=== PATIENT | male | born 1980 | race Caucasian/White ===

== ENCOUNTER 2016-11-19 20:47 | Emergency (ER) | payer MEDICAID ==
[2016-11-19 20:56] VITALS: RESP 18
[2016-11-19] MEDS ORDERED: LORazepam 2 MG/ML SYRINGE IV STA (21:15)
[2016-11-19] MEDS ORDERED: MECLIZINE 12.5 MG TAB PO STA (21:16)
--- NOTE | 2016-11-19 21:24 | ED ---
General Adult HPI - General Chief complaint: Dizziness Stated complaint: Vertigo Time Seen by Provider: 11/19/16 21:02 Source: patient, family, EMS, RN notes reviewed Mode of arrival: EMS Limitations: no limitations - History of Present Illness Initial comments: Chief complaint and history of present illness is a 36-year-old male to complaint of acute onset of dizziness. Nausea and vomiting and hit him early in the afternoon lasting 2 minutes then gone and again proximal and 90 minutes ago. The patient called the ambulance. This time is feeling slightly better. The dizziness increases when he looks hard to the left. No headache. No chest pain. No neuro deficits. - Related Data Home Medications Medication Instructions Recorded Confirmed Dextroamphetamine/Amphetamine 25 mg PO QAM 11/19/16 11/19/16 [Adderall Xr] Previous Rx's Medication Instructions Recorded Meclizine [Antivert] 25 mg PO TID #30 tab 11/19/16 Ondansetron Odt [Zofran ODT] 4 mg PO Q8HR PRN #5 tab 11/19/16 Allergies Allergy/AdvReac Type Severity Reaction Status Date / Time No Known Allergies Allergy Verified 03/16/16 11:21 Review of Systems ROS Statement: Those systems with pertinent positive or pertinent negative responses have been documented in the HPI. Review of systems. No headache he is dizzy when he turns his head to the left the right more than the left. No change in visual acuity. His reports she is talking normally. He states he has no weakness or difficulties with any extremities. Denies chest pain shows breath GI/ problems. All systems otherwise reviewed except for being dizzy with head movement. Past medical problems significant for migraines over 10 years ago and none since then. Denies any surgeries. Father had a stroke. Patient denies ALLERGIES nonsmoker drinks alcohol very rarely. Patient is not exposed to chemicals. He is a animal trainer. ROS Other: All systems not noted in ROS Statement are negative. Past Medical History Past Medical History: No Reported History History of Any Multi-Drug Resistant Organisms: None Reported Past Surgical History: No Surgical Hx Reported Past Psychological History: ADD/ADHD Smoking Status: Never smoker Past Alcohol Use History: None Reported Past Drug Use History: None Reported General Exam - General Exam Comments Initial Comments: General: The patient is awake and alert, acutely dizzy with nausea vomiting when he turns his head especially hard quickly to the left. Vital signs show temperature 96.5 pulse 56 respiratory rate 18 pulse ox on percent room air blood pressure 146/83 Eye: Pupils are equal, round and reactive to light, extra-ocular movements are intact ; there is normal conjunctiva bilaterally. No signs of icterus. Ears, nose, mouth and throat: There are moist mucous membranes and no oral lesions. Neck: The neck is supple, Cardiovascular: There is a regular rate and rhythm. Heart rate 56. Patient takes Adderall only Respiratory: Lungs are clear to auscultation, respirations are non-labored, breath sounds are equal. No wheezes, stridor, rales, or rhonchi. Gastrointestinal: Soft, non-distended, non-tender abdomen without masses or organomegaly noted. There is no rebound or guarding present. No CVA tenderness. Bowel sounds are unremarkable. Back: No back pain Musculoskeletal: No pain or problems with upper or lower extremities Neurological: The only focal problem is dizziness with head movement otherwise no neuro deficits. Skin: Denies any skin rashes Limitations: no limitations Course Vital Signs 11/19/16 20:53 Temperature 96.5 F L Pulse Rate 56 L Respiratory 18 Rate Blood Pressure 146/83 O2 Sat by Pulse 100 Oximetry Medical Decision Making - Medical Decision Making Patient states she is feeling better at this time. He received meclizine by mouth and IV Ativan. He is able to roll over without feeling too terribly dizzy. The plant this time for the patient to go home continue with medications including meclizine and Zofran. Stay hydrated change positions slowly. Follow-up with family physician return emergency room as needed Disposition Clinical Impression: Benign paroxysmal positional vertigo Disposition: HOME SELF-CARE Condition: Fair Instructions: Benign Paroxysmal Positional Vertigo (ED), Dizziness (ED) Additional Instructions: Stay hydrated, change positions slowly. Take Antivert 4 times daily for 10 days. Follow-up with family physician. If nauseated use Zofran as directed. Prescriptions: Meclizine [Antivert] 25 mg PO TID #30 tab Ondansetron Odt [Zofran ODT] 4 mg PO Q8HR PRN #5 tab PRN Reason: Nausea Time of Disposition: 23:27
[2016-11-19 23:53] VITALS: BP 151/89; PULSE 63; TEMP 98
== END 2016-11-19 23:51 | disposition home or self-care (01) ==
LOC: EC 20:47
DX: H81.10 Benign paroxysmal vertigo, unspecified ear (principal); R11.2 Nausea with vomiting, unspecified; F90.9 Attention-deficit hyperactivity disorder, unspecified type; Z79.899 Other long term (current) drug therapy
CPT/HCPCS: 93005; 99284; 96374; J2060

== ENCOUNTER → 2018-12-28 | Outpatient (CLI) | payer BC ==
--- NOTE | 2018-12-28 15:40 | NM ---
EXAMINATION TYPE: NM hepatobiliary w EF DATE OF EXAM: 12/28/2018 COMPARISON: NONE HISTORY: Acute cholecystitis per order. Abdominal pain with heartburn and reflux-like symptoms, known gallstones. TECHNIQUE: After the intravenous administration of 4.47 mCi Tc 99m Mebrofenin hepatobiliary scintigra phy is performed. Immediate images post injection. FINDINGS: There is satisfactory initial accumulation of tracer by the liver. The gallbladder is visualized wit hin 60 minutes. The small bowel activity is noted within 20 minutes. At one hour 8 ounces of oral e nsure plus is given to mimic CCK and gallbladder ejection fraction is calculated at 72 %, in the norm al range. Therefore there is no scintigraphic evidence of cystic or common bile duct obstruction to suggest acute cholecystitis or gallbladder dyskinesia. IMPRESSION: Exam is within normal limits.
== END | disposition home or self-care (01) ==
LOC: RADNMMAIN 12:47
PROVIDERS: ATTEND Psychiatry & Neurology Neurology
DX: K81.0 Acute cholecystitis (principal)
CPT/HCPCS: 78226; A9537

== ENCOUNTER 2019-03-20 16:39 | Inpatient (IN) | payer BC ==
[2019-03-20] MEDS ORDERED: SODIUM CHLORIDE 0.9% 1,000 ML IV STA (17:37)
[2019-03-20] MEDS ORDERED: HYDROmorphone 0.5 MG/0.5 ML SYRINGE IVP STA (17:45)
[2019-03-20] MEDS ORDERED: ONDANSETRON 4 MG/2 ML VIAL IVP STA (17:45)
--- NOTE | 2019-03-20 18:27 | ED ---
Abdominal Pain HPI - General Chief Complaint: Abdominal Pain Stated Complaint: GALLBLADDER PROBLEM Time Seen by Provider: 03/20/19 17:37 Source: patient, RN notes reviewed Mode of arrival: ambulatory Limitations: no limitations - History of Present Illness Initial Comments: This a 38-year-old male presents emergency Department chief complaint of right u pper quadrant abdominal pain. Patient states that he has known gallstones but states he has not had ultrasound in over 15 years. Patient states occasionally has pain associated with eating but states that he usually goes away with states the pain today has not subsided for several hours. He did have a CAT scan which was essentially normal. Patient denies any fevers or chills did not some nausea no vomiting denies diarrhea constipation no prior abdominal surgeries. - Related Data Home Medications Medication Instructions Recorded Confirmed Dextroamphetamine/Amphetamine 20 mg PO BID 03/20/19 03/20/19 [Adderall] Allergies Allergy/AdvReac Type Severity Reaction Status Date / Time No Known Allergies Allergy Verified 03/20/19 17:45 Review of Systems ROS Statement: Those systems with pertinent positive or pertinent negative responses have been documented in the HPI. ROS Other: All systems not noted in ROS Statement are negative. Past Medical History Past Medical History: No Reported History History of Any Multi-Drug Resistant Organisms: None Reported Past Surgical History: No Surgical Hx Reported Past Psychological History: ADD/ADHD Smoking Status: Never smoker Past Alcohol Use History: None Reported Past Drug Use History: None Reported General Exam Limitations: no limitations General appearance: alert, in no apparent distress Head exam: Present: atraumatic, normocephalic, normal inspection Neck exam: Present: normal inspection. Absent: tenderness, meningismus, lymphadenopathy Respiratory exam: Present: normal lung sounds bilaterally. Absent: respiratory distress, wheezes, rales, rhonchi, stridor Cardiovascular Exam: Present: normal rhythm, tachycardia, normal heart sounds. Absent: systolic murmur, diastolic murmur, rubs, gallop, clicks GI/Abdominal exam: Present: soft, tenderness (Moderate right upper quadrant), normal bowel sounds. Absent: distended, guarding, rebound, rigid Course Vital Signs 03/20/19 17:25 Temperature 97.9 F Pulse Rate 114 H Respiratory 20 Rate Blood Pressure 180/109 O2 Sat by Pulse 98 Oximetry Medical Decision Making - Medical Decision Making 38 show male presented for abdominal pain patient has multiple gallstones, elevated LFTs and not completely visualize common bile duct. Case discussed w remy Vitale patient will be admitted. - Lab Data Result diagrams: 03/20/19 18:20 03/20/19 18:20 Lab Results 03/20/19 03/20/19 03/20/19 Range/Units 18:20 18:20 18:20 WBC 11.9 H (3.8-10.6) k/uL RBC 5.44 (4.30-5.90) m/uL Hgb 15.5 (13.0-17.5) gm/dL Hct 45.6 (39.0-53.0) % MCV 83.9 (80.0-100.0) fL MCH 28.5 (25.0-35.0) pg MCHC 34.0 (31.0-37.0) g/dL RDW 14.4 (11.5-15.5) % Plt Count 196 (150-450) k/uL Neutrophils % 85 % Lymphocytes % 9 % Monocytes % 4 % Eosinophils % 1 % Basophils % 0 % Neutrophils # 10.1 H (1.3-7.7) k/uL Lymphocytes # 1.1 (1.0-4.8) k/uL Monocytes # 0.5 (0-1.0) k/uL Eosinophils # 0.1 (0-0.7) k/uL Basophils # 0.0 (0-0.2) k/uL Sodium 142 (137-145) mmol/L Potassium 3.8 (3.5-5.1) mmol/L Chloride 105 (98-107) mmol/L Carbon Dioxide 27 (22-30) mmol/L Anion Gap 10 mmol/L BUN 14 (9-20) mg/dL Creatinine 0.62 L (0.66-1.25) mg/dL Est GFR (CKD-EPI)AfAm >90 (>60 ml/min/1.73 sqM) Est GFR (CKD-EPI)NonAf >90 (>60 ml/min/1.73 sqM) Glucose 146 H (74-99) mg/dL Calcium 9.6 (8.4-10.2) mg/dL Total Bilirubin 1.3 (0.2-1.3) mg/dL AST 531 H (17-59) U/L ALT 359 H (21-72) U/L Alkaline Phosphatase 70 (38-126) U/L Total Protein 8.1 (6.3-8.2) g/dL Albumin 4.9 (3.5-5.0) g/dL Amylase 48 (30-110) U/L Lipase 144 (23-300) U/L Urine Color Yellow Urine Appearance Turbid (Clear) Urine pH 8.5 H (5.0-8.0) Ur Specific [place] 1.018 (1.001-1.035) Urine Protein 1+ H (Negative) Urine Glucose (UA) Trace H (Negative) Urine Ketones Negative (Negative) Urine Blood Negative (Negative) Urine Nitrite Negative (Negative) Urine Bilirubin Negative (Negative) Urine Urobilinogen 6.0 (<2.0) mg/dL Ur Leukocyte Esterase Negative (Negative) Urine WBC 5 (0-5) /hpf Amorphous Sediment Occasional H (None) /hpf Urine Mucus Rare H (None) /hpf Disposition Clinical Impression: Cholelithiasis, Elevated LFTs Disposition: ADMITTED IP TO THIS [facility] Condition: Stable Referrals: Rneé Her MD [Primary Care Provider] - 1-2 days
[2019-03-20 18:33] LABS: Amorphous Sediment,Urine Occasional /hpf; Appearance,Urine Turbid (Clear); Bilirubin,Urine Negative (Negative); Blood,Urine Negative (Negative); Color,Urine Yellow; Glucose,Urine (UA) Trace (Negative); Ketones,Urine Negative (Negative); Leukocyte Esterase,Urine Negative (Negative); Mucus,Urine Rare /hpf; Nitrite,Urine Negative (Negative); PH, Urine 8.5 (5.0-8.0); Protein,Urine 1+ (Negative); Specific Gravity,Urine 1.018 (1.001-1.035); WBC,Urine 5 /hpf (0-5)
[2019-03-20 18:41] LABS: Basophils % (A) 0 %; Eosinophils # (A) 0.1 k/uL (0-0.7); Eosinophils % (A) 1 %; HCT 45.6 % (39.0-53.0); HGB 15.5 gm/dL (13.0-17.5); Lymphocytes # (A) 1.1 k/uL (1.0-4.8); Lymphocytes % (A) 9 %; MCH 28.5 pg (25.0-35.0); MCV 83.9 fL (80.0-100.0); Mean Platelet Volume 7.1; Monocytes # (A) 0.5 k/uL (0-1.0); Monocytes % (A) 4 %; Neutrophils # (A) 10.1 k/uL (1.3-7.7); Neutrophils % (A) 85 %; Platelet Count 196 k/uL (150-450); RBC 5.44 m/uL (4.30-5.90); RDW 14.4 % (11.5-15.5); WBC 11.9 k/uL (3.8-10.6)
[2019-03-20 18:42] LABS: ALT 359 U/L (21-72); AST 531 U/L (17-59); African American GFR (CKD) >90 (>60 ml/min/1.73 sqM); Albumin 4.9 g/dL (3.5-5.0); Alkaline Phosphatase 70 U/L (38-126); Amylase 48 U/L (30-110); Anion Gap 10 mmol/L; Blood Urea Nitrogen 14 mg/dL (9-20); Calcium 9.6 mg/dL (8.4-10.2); Carbon Dioxide 27 mmol/L (22-30); Chloride 105 mmol/L (98-107); Glucose 146 mg/dL (74-99); Potassium 3.8 mmol/L (3.5-5.1); Sodium 142 mmol/L (137-145); Total Bilirubin 1.3 mg/dL (0.2-1.3); Total Protein 8.1 g/dL (6.3-8.2)
--- NOTE | 2019-03-20 19:07 | US ---
EXAMINATION TYPE: US gallbladder DATE OF EXAM: 03/20/2019 COMPARISON: NONE CLINICAL HISTORY: Pain. RUQ pain x 5.5 hours. Hx gallstones. EXAM MEASUREMENTS: Liver Length: 16.6 cm Gallbladder Wall: 0.26 cm CBD: not seen with certainty, posterior shadowing from gallbladder Right Kidney: 12.1 x 6.3 x 5.9 cm *Limited due to gas. Patient not NPO. Pancreas: obscured by overlying bowel gas. Liver: Difficult to penetrate Gallbladder: Echogenic foci with posterior shadowing seen throughout the gallbladder. Evidence for sonographic Whitkaer's sign: yes CBD: not seen with certainty Right Kidney: No hydronephrosis or masses seen IMPRESSION: Numerous gallstones. No dilated ducts. Common bile duct not seen. No focal liver defect.
[2019-03-20] MEDS ORDERED: PIPERACILLIN-TAZOBACTAM 3.375 GM in SODIUM CHLORIDE 0.9% 100 ML IVPB STA (20:05)
[2019-03-20] MEDS ORDERED: NALOXONE 0.4 MG/ML 1 ML VIAL IV PRN (20:06)
[2019-03-20] MEDS ORDERED: LABETALOL 5 MG/ML VIAL MDV IVP STA (21:29)
[2019-03-20] MEDS: SODIUM CHLORIDE 0.9% 1,000 ML IV SCH (21:42)
[2019-03-21] MEDS: PIPERACILLIN-TAZOBACTAM 3.375 GM in SODIUM CHLORIDE 0.9% 100 ML IVPB SCH ×3 (05:32→22:03)
[2019-03-21 07:03] LABS: Basophils % (A) 0 %; Eosinophils # (A) 0.1 k/uL (0-0.7); Eosinophils % (A) 1 %; HCT 43.2 % (39.0-53.0); HGB 14.2 gm/dL (13.0-17.5); Lymphocytes # (A) 1.3 k/uL (1.0-4.8); Lymphocytes % (A) 18 %; MCH 28.4 pg (25.0-35.0); MCHC 32.8 g/dL (31.0-37.0); MCV 86.5 fL (80.0-100.0); Mean Platelet Volume 7.2; Monocytes # (A) 0.3 k/uL (0-1.0); Monocytes % (A) 4 %; Neutrophils # (A) 5.4 k/uL (1.3-7.7); Neutrophils % (A) 76 %; Platelet Count 184 k/uL (150-450); RBC 4.99 m/uL (4.30-5.90); RDW 12.7 % (11.5-15.5); WBC 7.1 k/uL (3.8-10.6)
[2019-03-21 07:13] LABS: ALT 813 U/L (21-72); AST 691 U/L (17-59); African American GFR (CKD) >90 (>60 ml/min/1.73 sqM); Alkaline Phosphatase 72 U/L (38-126); Anion Gap 9 mmol/L; Blood Urea Nitrogen 10 mg/dL (9-20); Calcium 8.7 mg/dL (8.4-10.2); Carbon Dioxide 25 mmol/L (22-30); Chloride 107 mmol/L (98-107); Glucose 93 mg/dL (74-99); Sodium 141 mmol/L (137-145); Total Bilirubin 2.4 mg/dL (0.2-1.3); Total Protein 6.7 g/dL (6.3-8.2)
[2019-03-21] MEDS: SODIUM CHLORIDE 0.9% 1,000 ML IV SCH ×2 (09:07→20:50)
--- NOTE | 2019-03-21 09:56 | P.GSHP ---
History of Present Illness H&P Date: 03/21/19 CHIEF COMPLAINT: Common bile duct obstruction HISTORY OF PRESENT ILLNESS: The patient is a 38-year-old male who reports a 20 year history of having gallstones since he was age of [age] years old. He reports that he did not have insurance at that time. He's had intermittent attacks. His worst attack was 3 months ago during . He had a HIDA scan done which he says ejection fraction was over 75%. He presented yesterday to emergency room having after having severe epigastric discomfort and pain. LFTs are moderately elevated from 400-500. As a result, he was admitted for symptomatic gallstones, cholecystitis and common bile duct obstruction. This morning, his LFTs are worse including worsening total bilirubin levels. PAST MEDICAL HISTORY: Please see list PAST SURGICAL HISTORY: Please see list MEDICATIONS: Please see list ALLERGIES: Denies. SOCIAL HISTORY: Please see list FAMILY HISTORY: Pertinent for gallbladder disease REVIEW OF ORGAN SYSTEMS: CONSTITUTIONAL: No reports of fevers or chills. HEENT: Denies any troubles with the vision or hearing. ENDOCRINE: No reports of hypothyroidism. No diabetes. RESPIRATORY: No recent pneumonias. CARDIOVASCULAR: Denies chest pain or palpitations GI: No blood in stools or constipation. History of gallstones. MUSCULOSKELETAL: Has occasional joint pain including back pain. NEURO: No seizure disorders or headaches. No recent stroke. PSYCH: No depression or suicidal ideation. Has ADHD. HEMATOLOGIC: No personal or family history of DVTs or pulmonary emboli. PHYSICAL EXAM: VITAL SIGNS: Afebrile vital signs stable GENERAL: Well-developed pleasant male in no acute distress. HEENT: Mild scleral icterus. Extraocular movements grossly intact. Moist buccal mucosa. NECK: Supple without lymphadenopathy. CHEST: Unlabored respirations. Equal bilateral excursions. CARDIOVASCULAR: Regular rate regular rhythm rhythm. Distal 2+ pulses. ABDOMEN: Soft, nondistended. Nontender. MUSCULOSKELETAL: No clubbing, cyanosis, or edema. NEURO : No focal or lateralizing signs. Cranial nerves II-12 within normal limi ts. PSYCH: Alert and oriented to person, place and time. SKIN: Well perfused. Good skin turgor. LABS: White blood cell count improved however now with elevation of total bilirubin including worsening AST ALT and alkaline phosphatase over 400s. STUDIES: I personally reviewed his ultrasound of gallbladder demonstrating multiple gallstones and thickened gallbladder wall thickening. RADIOLOGY: Report reviewed demonstrating gallbladder wall thickening 26 mm. Difficult visualization of the common bile duct. MEDICAL RECORDS: Previous HIDA scan report reviewed demonstrating ejection fraction over 70% from November 2018 ASSESSMENT: 1. Choledocholithiasis due to symptomatically gallstones 2. Acute cholecystitis 3. Elevated liver enzymes 4. ADHD PLAN: 1. I personally spoke for GI where his LFTs are worsening consistent with common bile duct stones. Therapeutic ERCP discussed with patient pending GI consultation 2. Full inpatient hospitalization anticipated 3-5 days for complicated s ymptomatic gallstones 3. Will need cholecystectomy with benefits and risks described to patient and family at bedside 4. Further surgical intervention, patient presents with elevated risks for surgical intervention in conjunction with choledocholithiasis. Past Medical History Past Medical History: No Reported History History of Any Multi-Drug Resistant Organisms: None Reported Past Surgical History: No Surgical Hx Reported Past Anesthesia/Blood Transfusion Reactions: No Reported Reaction Past Psychological History: ADD/ADHD Smoking Status: Never smoker Past Alcohol Use History: None Reported Past Drug Use History: None Reported Medications and Allergies Home Medications Medication Instructions Recorded Confirmed Type Dextroamphetamine/Amphetamine 20 mg PO BID 03/20/19 03/20/19 History [Adderall] Allergies Allergy/AdvReac Type Severity Reaction Status Date / Time No Known Allergies Allergy Verified 03/20/19 17:45 Surgical - Exam Vital Signs Temp Pulse Resp BP Pulse Ox 97.9 F 114 H 20 180/109 98 03/20/19 17:25 03/20/19 17:25 03/20/19 17:25 03/20/19 17:25 03/20/19 17:25 Results - Labs 03/21/19 06:46 03/21/19 06:46 Abnormal Lab Results - Last 24 Hours (Table) 03/20/19 03/20/19 03/20/19 Range/Units 18:20 18:20 18:20 WBC 11.9 H (3.8-10.6) k/uL Neutrophils # 10.1 H (1.3-7.7) k/uL Creatinine 0.62 L (0.66-1.25) mg/dL Glucose 146 H (74-99) mg/dL Total Bilirubin (0.2-1.3) mg/dL AST 531 H (17-59) U/L ALT 359 H (21-72) U/L Urine pH 8.5 H (5.0-8.0) Urine Protein 1+ H (Negative) Urine Glucose (UA) Trace H (Negative) Amorphous Sediment Occasional H (None) /hpf Urine Mucus Rare H (None) /hpf 03/21/19 Range/Units 06:46 WBC (3.8-10.6) k/uL Neutrophils # (1.3-7.7) k/uL Creatinine (0.66-1.25) mg/dL Glucose (74-99) mg/dL Total Bilirubin 2.4 H (0.2-1.3) mg/dL AST 691 H (17-59) U/L ALT 813 H (21-72) U/L Urine pH (5.0-8.0) Urine Protein (Negative) Urine Glucose (UA) (Negative) Amorphous Sediment (None) /hpf Urine Mucus (None) /hpf Diabetes panel 03/20/19 03/21/19 Range/Units 18:20 06:46 Sodium 142 141 (137-145) mmol/L Potassium 3.8 4.0 (3.5-5.1) mmol/L Chloride 105 107 (98-107) mmol/L Carbon Dioxide 27 25 (22-30) mmol/L BUN 14 10 (9-20) mg/dL Creatinine 0.62 L 0.76 (0.66-1.25) mg/dL Glucose 146 H 93 (74-99) mg/dL Calcium 9.6 8.7 (8.4-10.2) mg/dL AST 531 H 691 H (17-59) U/L ALT 359 H 813 H (21-72) U/L Alkaline Phosphatase 70 72 (38-126) U/L Total Protein 8.1 6.7 (6.3-8.2) g/dL Albumin 4.9 4.0 (3.5-5.0) g/dL Calcium panel 03/20/19 03/21/19 Range/Units 18:20 06:46 Calcium 9.6 8.7 (8.4-10.2) mg/dL Albumin 4.9 4.0 (3.5-5.0) g/dL Pituitary panel 03/20/19 03/21/19 Range/Units 18:20 06:46 Sodium 142 141 (137-145) mmol/L Potassium 3.8 4.0 (3.5-5.1) mmol/L Chloride 105 107 (98-107) mmol/L Carbon Dioxide 27 25 (22-30) mmol/L BUN 14 10 (9-20) mg/dL Creatinine 0.62 L 0.76 (0.66-1.25) mg/dL Glucose 146 H 93 (74-99) mg/dL Calcium 9.6 8.7 (8.4-10.2) mg/dL Adrenal panel 03/20/19 03/21/19 Range/Units 18:20 06:46 Sodium 142 141 (137-145) mmol/L Potassium 3.8 4.0 (3.5-5.1) mmol/L Chloride 105 107 (98-107) mmol/L Carbon Dioxide 27 25 (22-30) mmol/L BUN 14 10 (9-20) mg/dL Creatinine 0.62 L 0.76 (0.66-1.25) mg/dL Glucose 146 H 93 (74-99) mg/dL Calcium 9.6 8.7 (8.4-10.2) mg/dL Total Bilirubin 1.3 2.4 H (0.2-1.3) mg/dL AST 531 H 691 H (17-59) U/L ALT 359 H 813 H (21-72) U/L Alkaline Phosphatase 70 72 (38-126) U/L Total Protein 8.1 6.7 (6.3-8.2) g/dL Albumin 4.9 4.0 (3.5-5.0) g/dL Assessment and Plan (1) Choledocholithiasis with acute cholecystitis Current Visit: Yes Status: Acute Code(s): K80.42 - CALCULUS OF BILE DUCT W ACUTE CHOLECYSTITIS W/O OBSTRUCTION SNOMED Code(s): 78683468 (2) Choledocholithiasis with acute cholecystitis with obstruction Current Visit: Yes Status: Acute Code(s): K80.43 - CALCULUS OF BILE DUCT W ACUTE CHOLECYSTITIS WITH OBSTRUCTION SNOMED Code(s): 25358255 (3) ADHD (attention deficit hyperactivity disorder) Current Visit: Yes Status: Acute Code(s): F90.9 - ATTENTION-DEFICIT HYPERACTIVITY DISORDER, UNSPECIFIED TYPE SNOMED Code(s): 385273810
[2019-03-21 10:00] LABS: Albumin 3.9 g/dL (3.5-5.0); Bilirubin, Conjugated 0.4 mg/dL (0.0-0.3); Bilirubin,Unconjugated 0.9 mg/dL (0.0-1.1); Total Bilirubin 2.3 mg/dL (0.2-1.3); Total Protein 6.6 g/dL (6.3-8.2)
[2019-03-21] MEDS ORDERED: INDOMETHACIN 50MG SUPPOSITORY RECTAL ONE (10:29)
--- NOTE | 2019-03-21 13:08 | P.CONS ---
History of Present Illness - Reason for Consult Consult date: 03/21/19 Choledocholithiasis Requesting physician: Jennifer Smith - Chief Complaint Abdominal pain - History of Present Illness Pleasant 38-year-old male with medical history significant for ADHD who presents for evaluation of abdominal pain. The patient reports a long-standing history of gallstones since age of [age] years old which caused him episodes of abdominal pain. He reports that these will occur intermittently and generally lasts less than 45 minutes. The patient was unwilling to undergo surgery prior to use dietary modifications to control symptoms. She presented to the hospital with complaints of severe epigastric discomfort. He describes the pain is lasting longer than normal, over now or in duration and was more severe in intensity. The patient had mild elevation in liver enzymes on presentation which subsequently trended higher with total bilirubin 1.3 increasing to 2.3, alkaline phosphatase 70 stable at 70, AST 531 increasing to 664 and ALTs 359 increasing to 806. Ultrasound of the abdomen was significant for numerous gallstones with no intrahepatic dilated ducts and CBD not visualized. Review of Systems REVIEW OF SYSTEMS: CONSTITUTIONAL: Denies any fevers, chills, weight change or fatigue. CARDIOVASCULAR: Denies any chest pain, palpitations high or low blood pressures RESPIRATORY: Denies any shortness of breath, hemoptysis or cough. GENITOURINARY: No dysuria or hematuria. MUSCULOSKELETAL: No weakness reported. SKIN: Denies any new rashes or lesions, jaundice or pallor. PSYCHIATRIC: Denies any depression or anxiety. NEUROLOGY: Denies headache, denies any new focal deficits. EARS/NOSE/THROAT: No recent hearing change, congestion, nasal discharge or sore throat. EYES: No pain in eyes, discharge or change in vision. GASTROINTESTINAL: As per HPI. Past Medical History Past Medical History: No Reported History History of Any Multi-Drug Resistant Organisms: None Reported Past Surgical History: No Surgical Hx Reported Past Anesthesia/Blood Transfusion Reactions: No Reported Reaction Past Psychological History: ADD/ADHD Smoking Status: Never smoker Past Alcohol Use History: None Reported Past Drug Use History: None Reported Additional History: Family history: Reviewed with the patient and noncontributory to current medical presentation. Medications and Allergies Home Medications Medication Instructions Recorded Confirmed Type Dextroamphetamine/Amphetamine 20 mg PO BID 03/20/19 03/20/19 History [Adderall] Allergies Allergy/AdvReac Type Severity Reaction Status Date / Time No Known Allergies Allergy Verified 03/20/19 17:45 Physical Exam Vitals: Vital Signs Temp Pulse Pulse Resp BP BP Pulse Ox 03/21/19 07:00 98.1 F 82 15 148/90 96 03/21/19 01:53 98.4 F 72 18 135/77 97 03/20/19 22:38 98.5 F 94 18 145/91 92 L 03/20/19 22:06 88 16 150/102 97 03/20/19 20:44 86 16 172/105 96 03/20/19 17:25 97.9 F 114 H 20 180/109 98 Intake and Output 03/20/19 03/21/19 03/21/19 22:59 06:59 14:59 Intake Total 1750 Balance 1750 Intake: Intake, IV Titration 1750 Amount Sodium Chloride 0.9% 1, 750 000 ml @ 75 mls/hr IV . [id number] DANIEL Rx#:[id number] Sodium Chloride 0.9% 1, 1000 000 ml @ 999 mls/hr IV . Q1H1M STA Rx#:[id number] Other: # Voids 1 2 Weight 99.79 kg On physical examination, patient appears comfortable in no apparent distress. HEAD: Normocephalic, atraumatic. EYES: No scleral icterus. No conjunctival injection. MOUTH: No lesions, tongue midline. NECK: Trachea midline, no gross abnormalities. CHEST: Clear to auscultation with no wheezing or rhonchi appreciated. HEART: Regular rate and rhythm. ABDOMEN: Soft, obese. Bowel sounds are positive. No organomegaly. No guarding or rigidity. EXTREMITIES: No pedal edema. SKIN: No rashes, no jaundice. NEUROLOGIC: Alert and oriented x3. No focal deficits. Results CBC & Chem 7: 03/21/19 06:46 03/21/19 06:46 Labs: Abnormal Lab Results - Last 24 Hours (Table) 03/20/19 03/20/19 03/20/19 Range/Units 18:20 18:20 18:20 WBC 11.9 H (3.8-10.6) k/uL Neutrophils # 10.1 H (1.3-7.7) k/uL Creatinine 0.62 L (0.66-1.25) mg/dL Glucose 146 H (74-99) mg/dL Total Bilirubin (0.2-1.3) mg/dL Conjugated Bilirubin (0.0-0.3) mg/dL Delta Bilirubin (0.0-0.2) mg/dL AST 531 H (17-59) U/L ALT 359 H (21-72) U/L Urine pH 8.5 H (5.0-8.0) Urine Protein 1+ H (Negative) Urine Glucose (UA) Trace H (Negative) Amorphous Sediment Occasional H (None) /hpf Urine Mucus Rare H (None) /hpf 03/21/19 03/21/19 Range/Units 06:46 06:46 WBC (3.8-10.6) k/uL Neutrophils # (1.3-7.7) k/uL Creatinine (0.66-1.25) mg/dL Glucose (74-99) mg/dL Total Bilirubin 2.4 H 2.3 H (0.2-1.3) mg/dL Conjugated Bilirubin 0.4 H (0.0-0.3) mg/dL Delta Bilirubin 1.0 H (0.0-0.2) mg/dL AST 691 H 664 H (17-59) U/L ALT 813 H 806 H (21-72) U/L Urine pH (5.0-8.0) Urine Protein (Negative) Urine Glucose (UA) (Negative) Amorphous Sediment (None) /hpf Urine Mucus (None) /hpf US - abdomen: report reviewed (Ultrasound of the abdomen with findings of gallstones with no intrahepatic biliary dilation and nonvisualization of the CBD) Assessment and Plan (1) Cholelithiasis Narrative/Plan: 38-year-old with a long-standing history of abdominal pain secondary to cholelithiasis who presented due to a severe episode of abdominal pain. The patient was found to have elevation in liver enzymes which subsequently trended higher today with total bilirubin 2.3, alkaline phosphatase 70, AST 800 and MALT 664. Suspicion is for choledocholithiasis, a gallstone which is passed, with other etiology less likely. Current Visit: Yes Status: Acute Code(s): K80.20 - CALCULUS OF GALLBLADDER W/O CHOLECYSTITIS W/O OBSTRUCTION SNOMED Code(s): 481534908 (2) Elevated LFTs Current Visit: Yes Status: Acute Code(s): R94.5 - ABNORMAL RESULTS OF LIVER FUNCTION STUDIES SNOMED Code(s): 950402695 Plan: Supportive care Nothing by mouth Continue antibiotic therapy Continue to monitor clinically Plan for ERCP today Indocin to be given preprocedure Surgical service following Thank you for allowing us to participate in the care of the patient we will continue to follow
[2019-03-21] MEDS ORDERED: IV FLUID CONTINUATION 1,000 ML IV ONE ×2 (16:40→16:41)
[2019-03-21] MEDS ORDERED: ONDANSETRON 4 MG/2 ML VIAL IVP ONE (16:51)
[2019-03-21] MEDS ORDERED: DEXAMETHASONE SOD PHOSPHATE 10 MG/ML 1 ML VIAL IV ONE (16:51)
[2019-03-21] MEDS ORDERED: PROPOFOL 10 MG/ML 20 ML VIAL IV ONE (17:07)
[2019-03-21] MEDS ORDERED: LIDOCAINE 1% INJ 10MG/ML (20 ML MDV) ONE (17:07)
[2019-03-21] MEDS ORDERED: SUCCINYLCHOLINE CHLORIDE 100 MG/5 ML SYR IV ONE (17:07)
[2019-03-21] MEDS ORDERED: MIDAZOLAM 2 MG/2 ML VIAL ONE (17:07)
[2019-03-21] MEDS ORDERED: fentaNYL (PF) 50 MCG/ML 2 ML AMP ONE (17:07)
[2019-03-21] MEDS ORDERED: IOPAMIDOL-300 50ML BTL MISCELLANE ONE (18:09)
--- NOTE | 2019-03-21 18:35 | P.PCN ---
Date of Procedure: 03/21/19 Description of Procedure: Brief history: 38-year-old male with medical history significant for ADHD who presents for evaluation of abdominal pain. The patient reports a long-standing history of gallstones since age of [age] years old which caused him episodes of abdominal pain. He reports that these will occur intermittently and generally lasts less than 45 minutes. The patient was unwilling to undergo surgery prior to use dietary modifications to control symptoms. She presented to the hospital with complaints of severe epigastric discomfort. He describes the pain is lasting longer than normal, over now or in duration and was more severe in intensity. The patient had mild elevation in liver enzymes on presentation which subsequently trended higher with total bilirubin 1.3 increasing to 2.3, alkaline phosphatase 70 stable at 70, AST 531 increasing to 664 and ALTs 359 increasing to 806. Ultrasound of the abdomen was significant for numerous gallstones with no intrahepatic dilated ducts and CBD not visualized. Procedure performed: ERCP with cholangiogram, sphincterotomy and balloon sweep Preoperative diagnoses: Elevated bilirubin, abdominal pain, cholelithiasis, elevated liver enzymes IV sedation per anesthesia Estimated blood loss: Minimal. Procedure: After informed consent was obtained from the patient and after the risks benefits and complications including bleeding perforation and pancreatitis explained in detail the patient was brought into the endoscopy unit. The patient was placed in prone position and IV conscious sedation was administered by anesthesia under continuous monitoring. The Olympus side-viewing duodenoscope was then inserted into the mouth and esophagus intubated without any difficulty. The scope was gradually advanced into the stomach and duodenum. The major papilla was identified without any difficulty, with no bile flow noted initially. Cannulation of the papilla was performed with a sphincterotome. Wire was then passed through the CBD into the common hepatic duct into the bifurcation. Cholangiogram was performed in the CBD appeared approximately 1 cm in size with no filling defects noted. A 1 cm sphincterotomy was then performed using the sphincterotome. The sphincterotome was then removed over the guidewire and exchanged for a balloon. Balloon was passed to the bifurcation and inflated to 8.5 and 11 mm with multiple passes through the duct performed with only bile seen. Pancreatic duct was injected and cannul ated. The patient tolerated the procedure well. Impression: 1. ERCP with cholangiogram, sphincterotomy and balloon sweep of the CBD. 2. Normal CBD with no filling defect noted. Recommendations: The findings of this examination were discussed with the patient as well as a family. Case discussed with the surgical service. Okay for full liquid diet and nothing by mouth after midnight. Continue monitor liver enzymes. Timing of cholecystectomy to be determined by surgical service.
[2019-03-21] MEDS: ONDANSETRON 4 MG/2 ML VIAL IVP PRN (19:56)
[2019-03-21] MEDS: HYDROmorphone 0.5 MG/0.5 ML SYRINGE IVP PRN (19:56)
[2019-03-22] MEDS: PIPERACILLIN-TAZOBACTAM 3.375 GM in SODIUM CHLORIDE 0.9% 100 ML IVPB SCH ×3 (05:46→21:26)
[2019-03-22] MEDS: HYDROmorphone 0.5 MG/0.5 ML SYRINGE IVP PRN ×3 (05:47→11:15)
--- NOTE | 2019-03-22 07:38 | FL ---
Fluoroscopy INDICATION: Pain FINDINGS: Fluoroscopy time: 52 seconds. Images obtained: 4. IMPRESSIONS: 1. Documentation of fluoroscopy.
[2019-03-22 09:07] LABS: ALT 669 U/L (21-72); AST 222 U/L (17-59); African American GFR (CKD) >90 (>60 ml/min/1.73 sqM); Albumin 4.4 g/dL (3.5-5.0); Alkaline Phosphatase 93 U/L (38-126); Anion Gap 11 mmol/L; Blood Urea Nitrogen 12 mg/dL (9-20); Calcium 9.3 mg/dL (8.4-10.2); Carbon Dioxide 25 mmol/L (22-30); Chloride 104 mmol/L (98-107); Glucose 109 mg/dL (74-99); Potassium 4.2 mmol/L (3.5-5.1); Sodium 140 mmol/L (137-145); Total Bilirubin 1.5 mg/dL (0.2-1.3); Total Protein 7.3 g/dL (6.3-8.2)
[2019-03-22 09:24] LABS: Basophils % (A) 0 %; Eosinophils # (A) 0.1 k/uL (0-0.7); Eosinophils % (A) 1 %; HCT 44.7 % (39.0-53.0); HGB 15.1 gm/dL (13.0-17.5); Lymphocytes # (A) 0.9 k/uL (1.0-4.8); Lymphocytes % (A) 10 %; MCH 29.1 pg (25.0-35.0); MCHC 33.7 g/dL (31.0-37.0); MCV 86.3 fL (80.0-100.0); Monocytes # (A) 0.4 k/uL (0-1.0); Monocytes % (A) 4 %; Neutrophils # (A) 7.1 k/uL (1.3-7.7); Neutrophils % (A) 84 %; Platelet Count 178 k/uL (150-450); RBC 5.18 m/uL (4.30-5.90); RDW 12.8 % (11.5-15.5); WBC 8.5 k/uL (3.8-10.6)
[2019-03-22] MEDS: SODIUM CHLORIDE 0.9% 1,000 ML IV SCH (11:15)
[2019-03-22] MEDS: ONDANSETRON 4 MG/2 ML VIAL IVP PRN (11:16)
[2019-03-22] MEDS ORDERED: HYDROmorphone 1 MG/ML 1 ML SYRINGE IVP STA (13:00)
[2019-03-22] MEDS ORDERED: SODIUM CHLORIDE 0.9% 1,000 ML IV ONE (14:44)
[2019-03-22] MEDS ORDERED: fentaNYL (PF) 50 MCG/ML 2 ML AMP IVP ONE ×2 (14:58→15:32)
--- NOTE | 2019-03-22 15:12 | P.PN ---
Subjective Progress Note Date: 03/22/19 Principal diagnosis: Elevated liver enzymes, cholelithiasis Patient is status post ERCP with sphincterotomy yesterday. Currently taken for laparoscopic cholecystectomy. LFTs trending down today, lipase elevated. At this time the gastroenterology service will stand by. Please call us back with any questions or concerns. Objective - Vital Signs Vital signs: Vital Signs Temp 97.5 F L 03/22/19 14:44 Pulse 66 03/22/19 14:44 Resp 16 03/22/19 14:44 BP 191/106 03/22/19 14:44 Pulse Ox 98 03/22/19 14:44 Intake & Output 03/21/19 03/22/19 03/22/19 18:59 06:59 18:59 Intake Total 1350 230 470 Balance 1350 230 470 Intake: IV 650 Intake, IV Titration 700 230 470 Amount Piperacillin-Tazobactam 3 100 100 .375 gm In Sodium Chloride 0.9% 100 ml @ 25 mls/hr IVPB Q8H DANIEL Rx#: [id number] Sodium Chloride 0.9% 1, 600 230 370 000 ml @ 75 mls/hr IV . [id number] DANIEL Rx#:[id number] Other: Voiding Method Toilet # Voids 3 1 2 - Labs CBC & Chem 7: 03/22/19 08:35 03/22/19 08:35 Labs: Abnormal Lab Results - Last 24 Hours (Table) 03/22/19 03/22/19 Range/Units 08:35 08:35 Lymphocytes # 0.9 L (1.0-4.8) k/uL Glucose 109 H (74-99) mg/dL Total Bilirubin 1.5 H (0.2-1.3) mg/dL AST 222 H (17-59) U/L ALT 669 H (21-72) U/L Lipase 2666 H (23-300) U/L Assessment and Plan (1) Cholelithiasis Current Visit: Yes Status: Acute Code(s): K80.20 - CALCULUS OF GALLBLADDER W/O CHOLECYSTITIS W/O OBSTRUCTION SNOMED Code(s): 683528077 (2) Elevated LFTs Current Visit: Yes Status: Acute Code(s): R94.5 - ABNORMAL RESULTS OF LIVER FUNCTION STUDIES SNOMED Code(s): 200565149
[2019-03-22] MEDS ORDERED: HEPARIN SODIUM,PORCINE 5,000 UNIT/ML 1 ML VIAL SQ ONE (17:26)
[2019-03-22] MEDS ORDERED: LIDOCAINE 1% INJ 10MG/ML (20 ML MDV) ONE (17:45)
[2019-03-22] MEDS ORDERED: ROPIVACAINE 5 MG/ML 30 ML VIAL ONE (17:45)
[2019-03-22] MEDS ORDERED: ROCURONIUM BROMIDE 10 MG/ML 10 ML VIAL IV ONE (17:45)
[2019-03-22] MEDS ORDERED: PROPOFOL 10 MG/ML 20 ML VIAL IV ONE (17:45)
[2019-03-22] MEDS ORDERED: MIDAZOLAM 2 MG/2 ML VIAL ONE (17:45)
[2019-03-22] MEDS ORDERED: GLYCOPYRROLATE 0.2 MG/ML 2 ML VIAL ONE (17:45)
[2019-03-22] MEDS ORDERED: NEOSTIGMINE 1 MG/ML 10 ML VIAL ONE (17:45)
[2019-03-22] MEDS ORDERED: INDOCYANINE GREEN 25 MG VIAL IV ONE (17:45)
[2019-03-22] MEDS ORDERED: SUCCINYLCHOLINE CHLORIDE 100 MG/5 ML SYR IV ONE (17:45)
[2019-03-22] MEDS ORDERED: fentaNYL (PF) 50 MCG/ML 2 ML AMP ONE (17:45)
--- NOTE | 2019-03-22 17:53 | P.ANPRN ---
Procedure Note - Anesthesia - Nerve Block Performed Bilateral Transversus Abdominis Single Time Out Performed: Yes Date of Procedure: 03/22/19 Procedure Start Time: 15:31 Procedure Stop Time: 15:36 Location of Patient Procedure: PreOp Indication: Acute Post-Operative Pain, Analgesia, Dx/Pain Location, Requested by Surgeon Sedation Type: Sedate with meaningful contact maintained Preparation: Sterile Prep Position: Supine Catheter: None Needle Types: Pajunk Needle Gauge: 21 Technique: Ultrasound (Picture was saved and stored on file. ) Injectate: Other (see comment) (0.25% bupivacaine with 1:200k epinephrine 30cc each side) Blood Aspirated: No Pain Paresthesia on Injection Noted: No Resistance on Injection: Normal Events: Uneventful and Well Tolerated
[2019-03-22] MEDS ORDERED: INDOCYANINE GREEN 25 MG VIAL IV STA (18:11)
[2019-03-22] MEDS ORDERED: HEPARIN SODIUM,PORCINE 5,000 UNIT/ML 1 ML VIAL SQ STA (18:11)
[2019-03-22] MEDS ORDERED: BUPIVACAIN-EPI 0.25%-1:200,000 30 ML VIAL SQ ONE (18:18)
[2019-03-22] MEDS ORDERED: LACTATED RINGERS 1,000 ML IV ONE ×3 (19:00→20:15)
[2019-03-22] MEDS: HYDROmorphone 1 MG/ML 1 ML SYRINGE IVP ONE ×4 (20:11→20:32)
--- NOTE | 2019-03-22 20:12 | P.OP ---
Date of Procedure: 03/22/19 Description of Procedure: Date of Procedure: 03/22/19 SURGEON: ROVERTO CHANG MD PREOPERATIVE DIAGNOSES: 1. Acute cholecystitis 2. Right upper quadrant abdominal pain 3. Symptomatic gallstones 4. ERCP induced pancreatitis 5. Epigastric abdominal pain 6. Attention deficit disorder/ADHD POSTOPERATIVE DIAGNOSES: 1. Acute cholecystitis 2. Right upper quadrant abdominal pain 3. Symptomatic gallstones 4. ERCP induced pancreatitis 5. Epigastric abdominal pain 6. Attention deficit disorder/ADHD 7. Peritoneal adhesions from greater omentum to gallbladder OPERATION: 1. Robotic-assisted da Jj Xi laparoscopic lysis of adhesions over 1 hr 2. Robotic-assisted da Jj Xi laparoscopic cholecystectomy, multiport with FIREFLY Anesthesia: GETA local Estimated Blood Loss (ml): 30 Pathology: none sent (Gallbladder) Condition: stable Disposition: floor COMPLICATIONS: None. Operative Findings: 1. Severe adhesive disease of the entire gallbladder to greater omentum from chronic cholecystitis 2. Acute cholecystitis identified. 3. Dome down technique performed for safe removal of gallbladder including firefly technology INDICATIONS: The patient is a 38-year-old male who presents with acute cholelcystitis including ERCP induced pancreatitis. Surgical intervention with a laparoscopic cholecystectomy was described at length including injury to the biliary tree, bleeding, infection, need for further surgery. Informed consent was obtained. Robotic assisted laparoscopic approach was described. Benefits and risks of the procedure including but not limited to bleeding, infection, injury to the biliary tree was described. Informed consent was obtained. DESCRIPTION OF PROCEDURE: Patient was brought to the operating room, placed in supine position. After general induction, the abdomen had been prepped and draped in standard sterile fashion. The robotic da Jj XI system was primed. After a timeout protocol was performed, the patient had been prepped and draped in standard sterile fashion. The patient was injected with indocyanine green. A 5 mm 0 degrees laparoscopic trocar entry was performed along the left upper quadrant. The abdomen insufflated to 15 mmHg pressure which was tolerated well. Diagnostic laparoscopy demonstrated no injury to bowel viscera or mesentery. The liver surface was unremarkable. Next, two 8 mm robotic ports were placed along the right upper abdomen. The camera 8-mm port was maintained along the epigastrium. Another 8 mm port was placed along the left upper abdominal wall after exchanging the 5 mm port. Please note that the ports were placed at least 10 to 15 cm away from the target anatomy of the gallbladder. The robot was docked along the left lateral abdomen. The patient was repositioned in reverse Trendelenburg position. Using a grasper for arm 3, a grasper for arm 4, including hook cautery for arm 1, the robotic system was docked and primed as described. Instruments were interchanged by the employment assistant including hook cautery, Bovie cautery and clip appliers. Additional instruments including vessel sealer and robotic suction. I had sat at the console. Diagnostic laparoscopy demonstrated that the gallbladder was completely encased in surrounding tissue. Extensive lysis of adhesions over 30 minutes was performed for complete dissection of gallbladder from surrounding tissue using cautery including vessel sealer. Decompression of the gallbladder did occur. Dome down technique was performed. The gallbladder fundus was retracted over the dome of the liver. Attention was brought to the infundibulum which was gently retracted in the inferior lateral approach. Using a grasper, the cystic duct including the cystic artery was carefully skeletonized. FIREFLY was used to identify the cystic artery and cystic structures. A critical view of safety was obtained. Large PLASTIC clips were used throughout the entire case. Using a clip tafe teacher 2 clips were placed proximally, and 1 clip was placed between the infundibulum and cystic duct and divided using cautery. Next, the cystic artery was similarly clipped and cauterized. Electro-Bovie cautery was used to remove the gallbladder from the hepatic fossa. Hemostasis was checked and found to be adequate. The robot was undocked. I re-scrubbed into the case. Using a 10 mm Endo Catch bag via the left upper quadrant incision, the specimen was removed from the abdominal cavity. All pneumoperitoneum instruments were evacuated from the abdominal cavity. The incisions were reapproximated using 4-0 Monocryl in an interrupted subcuticular fashion. Fascial defects were over 8 mm in size and closed using 0 Vicryl and Teodoro Montesinos. Please note along the trocar sites, local anesthetic was placed as a field block prior to insertion of all instruments. Liquid glue was applied to the skin. At the end of the procedure needle, sponge, and instrument count had been verified correct by the surgical instruments inspector. The patient was transferred to postanesthesia care unit in stable condition. Intraoperative films were shared with the patient's family who were very pleased with the level of care.
[2019-03-22] MEDS: KETOROLAC 30 MG/ML 1 ML VIAL IVP SCH (21:29)
[2019-03-23] MEDS: oxyCODONE-APAP 5-325MG 1 EACH TAB PO PRN ×4 (01:07→17:24)
[2019-03-23] MEDS: ONDANSETRON 4 MG/2 ML VIAL IVP PRN (01:29)
[2019-03-23] MEDS: SODIUM CHLORIDE 0.9% 1,000 ML IV SCH ×4 (01:58→23:51)
[2019-03-23] MEDS: HYDROmorphone 1 MG/ML 1 ML SYRINGE IVP PRN ×8 (02:00→23:49)
[2019-03-23] MEDS: KETOROLAC 30 MG/ML 1 ML VIAL IVP SCH ×4 (03:18→20:28)
[2019-03-23] MEDS: HEPARIN SODIUM,PORCINE 5,000 UNIT/ML 1 ML VIAL SQ SCH ×2 (05:06→18:26)
[2019-03-23] MEDS: PIPERACILLIN-TAZOBACTAM 3.375 GM in SODIUM CHLORIDE 0.9% 100 ML IVPB SCH ×3 (05:07→20:28)
[2019-03-23] MEDS: PANTOPRAZOLE 40 MG/10 ML VIAL IV SCH (07:47)
[2019-03-23] MEDS: METOCLOPRAMIDE 5 MG/ML 2 ML VIAL IVP PRN ×2 (07:53→18:25)
[2019-03-23 08:56] LABS: ALT 451 U/L (21-72); AST 125 U/L (17-59); African American GFR (CKD) >90 (>60 ml/min/1.73 sqM); Alkaline Phosphatase 81 U/L (38-126); Anion Gap 11 mmol/L; Blood Urea Nitrogen 13 mg/dL (9-20); Calcium 8.5 mg/dL (8.4-10.2); Carbon Dioxide 27 mmol/L (22-30); Chloride 98 mmol/L (98-107); Glucose 87 mg/dL (74-99); Potassium 3.9 mmol/L (3.5-5.1); Sodium 136 mmol/L (137-145); Total Bilirubin 1.3 mg/dL (0.2-1.3); Total Protein 6.8 g/dL (6.3-8.2)
--- NOTE | 2019-03-23 09:44 | P.PN ---
Subjective Progress Note Date: 03/23/19 Principal diagnosis: Pancreatitis Patient underwent cholecystectomy yesterday. Pain is improved today. Labs are improved as well. He is thirsty. Objective - Vital Signs Vital signs: Vital Signs Temp 98.1 F 03/23/19 07:00 Pulse 94 03/23/19 07:00 Resp 17 03/23/19 07:00 BP 171/95 03/23/19 07:00 Pulse Ox 94 L 03/23/19 07:00 Intake & Output 03/22/19 03/23/19 03/23/19 18:59 06:59 18:59 Intake Total 1470 1000 Output Total 530 Balance 1470 470 Intake: IV 1000 1000 Intake, IV Titration 470 Amount Piperacillin-Tazobactam 3 100 .375 gm In Sodium Chloride 0.9% 100 ml @ 25 mls/hr IVPB Q8H DANIEL Rx#: [id number] Sodium Chloride 0.9% 1, 370 000 ml @ 150 mls/hr IV . Q6H40M DANIEL Rx#:[id number] Output: Urine 500 Estimated Blood Loss 30 Other: # Voids 2 2 - Exam Abdomen: Soft, nondistended, mild tenderness at incision sites, incisions clean and dry - Labs CBC & Chem 7: 03/22/19 08:35 03/23/19 07:20 Labs: Abnormal Lab Results - Last 24 Hours (Table) 03/23/19 Range/Units 07:20 Sodium 136 L (137-145) mmol/L Creatinine 0.59 L (0.66-1.25) mg/dL AST 125 H (17-59) U/L ALT 451 H (21-72) U/L Assessment and Plan (1) Choledocholithiasis with acute cholecystitis Narrative/Plan: Patient doing better today. Begin clear liquids. Ambulate. Current Visit: Yes Status: Acute Code(s): K80.42 - CALCULUS OF BILE DUCT W ACUTE CHOLECYSTITIS W/O OBSTRUCTION SNOMED Code(s): 00447908
[2019-03-23] MEDS ORDERED: cloNIDine 0.1 MG/24HR PATCH TRANSDERM SCH (18:00)
--- NOTE | 2019-03-23 23:12 | P.CONS ---
History of Present Illness - Reason for Consult Consult date: 03/23/19 Elevated blood pressure - Chief Complaint Abdominal pain - History of Present Illness Patient is a 38-year-old male with a known history of gallstones for the past 20 years since a 18 and GERD came to ER with complaints of abdominal pain mainly right upper quadrant. Patient has been having intermittent abdominal pain. Patient says that occasionally pain was associated with eating and subsides by itself. On the day of admission, 03/20/2019 patient has been having worsening pain for several hours which made him come to ER. Denied any fever or chills. Patient does have nausea and vomiting. no abdominal pain. ultrasound of the liver showed multiple gallstones. Patient was found to have elevated liver enzymes and bilirubin level II.3. Patient was seen by gastroenterology and had ERCP done with cholangiogram, sphincterotomy and balloon sweep of the CBD. Following the ERCP patient developed epigastric pain radiating to the back with elevated lipase level, pancreatitis. Patient was taken to or for cholecystectomy yesterday. Currently patient is status post cholecystectomy. Patient is still complaining of abdominal pain mainly epigastric region. Blood pressure is uncontrolled despite pain medications. Medicine service was consulted. Operative Findings, cholecystectomy: 1. Severe adhesive disease of the entire gallbladder to greater omentum from chronic cholecystitis 2. Acute cholecystitis identified. 3. Dome down technique performed for safe removal of gallbladder including firefly technology ERCP Impression: 1. ERCP with cholangiogram, sphincterotomy and balloon sweep of the CBD. 2. Normal CBD with no filling defect noted. Review of Systems Constitutional: Patient denies any fever or chills . No generalized weakness or weight loss. Abdomen: Does have abdominal pain and nausea. No vomiting. No diarrhea.. Cardiovascular: Patient denies any chest pain or short of breath no palpitations. Respiratory: patient denied any cough is from production. No shortness of breath Neurologic: Patient denied any numbness or tingling headache. Musculoskeletal: Patient denies any complaints of joint swelling or deformity. Skin: Negative Psychiatric: Negative Endocrine: No heat or cold intolerance. No recent weight gain. Genitourinary: No dysuria or hematuria. All other 14 point ROS negative except the above Past Medical History Past Medical History: No Reported History History of Any Multi-Drug Resistant Organisms: None Reported Past Surgical History: No Surgical Hx Reported Past Anesthesia/Blood Transfusion Reactions: No Reported Reaction Past Psychological History: ADD/ADHD Smoking Status: Never smoker Past Alcohol Use History: None Reported Past Drug Use History: None Reported Medications and Allergies Home Medications Medication Instructions Recorded Confirmed Type Dextroamphetamine/Amphetamine 20 mg PO BID 03/20/19 03/20/19 History [Adderall] Hydrocodone/Acetaminophen [[place] 1 tab PO Q4HR PRN 3 Days #18 tab 03/22/19 Rx 5-325] Allergies Allergy/AdvReac Type Severity Reaction Status Date / Time No Known Allergies Allergy Verified 03/22/19 14:49 Physical Exam Vitals: Vital Signs Temp Pulse Pulse Resp BP Pulse Ox 03/23/19 15:47 94 154/96 03/23/19 15:00 98.8 F 110 H 17 164/113 93 L 03/23/19 09:47 98.1 F 86 14 156/74 03/23/19 07:00 98.1 F 94 17 171/95 94 L 03/23/19 02:07 98.5 F 86 18 154/89 93 L 03/22/19 23:05 98.0 F 87 15 154/89 98 03/22/19 23:04 88 150/91 03/22/19 22:49 81 154/103 96 03/22/19 22:34 77 160/82 96 03/22/19 22:19 76 156/91 96 03/22/19 22:04 71 152/85 96 03/22/19 21:49 68 157/80 95 03/22/19 21:34 64 157/92 95 03/22/19 21:19 62 149/84 94 L 03/22/19 21:04 98.4 F 63 15 161/94 93 L 03/22/19 20:45 59 L 16 149/83 92 L 03/22/19 20:30 61 16 154/93 92 L 03/22/19 20:15 63 16 154/93 94 L 03/22/19 20:00 97.5 F L 78 14 146/83 96 Intake and Output 03/23/19 03/23/19 03/23/19 06:59 14:59 22:59 Output Total 500 Balance -500 Output: Urine 500 Other: # Voids 2 1 PHYSICAL EXAMINATION: Patient is lying in the bed comfortably, mild distress, awake alert and oriented.. HEENT: Normocephalic. Neck is supple. Pupils reactive. Nostrils clear. Oral cavity is moist. Ears reveal no drainage. Neck reveals no JVD, carotid bruits, or thyromegaly. CHEST EXAMINATION: Trachea is central. Symmetrical expansion. Bibasilar diminished air entry. Lung niño clear to auscultation and percussion. CARDIAC: Normal S1, S2 with no gallops. No murmurs ABDOMEN: Soft. Epigastric abdominal tenderness. Bowel sounds normal. No organomegaly. No abdominal bruits. Extremities: reveal no edema. No clubbing or cyanosis Neurologically awake, alert, oriented x3 with well-coordinated movements. No focal deficits noted Skin: No rash or skin lesions. Psychiatric: Coperative. Nonsuicidal Musculoskeletal: No joint swelling or deformity. Normal range of motion. Results CBC & Chem 7: 03/22/19 08:35 03/23/19 07:20 Labs: Abnormal Lab Results - Last 24 Hours (Table) 03/23/19 Range/Units 07:20 Sodium 136 L (137-145) mmol/L Creatinine 0.59 L (0.66-1.25) mg/dL AST 125 H (17-59) U/L ALT 451 H (21-72) U/L Assessment and Plan Assessment: Elevated blood pressure likely due to pain and IV fluids. No history of hypertension. Choledocholithiasis with acute cholecystitis. Status post cholecystectomy. Elevated liver enzymes Cholelithiasis. Status post ERCP sphincterotomy Acute pancreatitis with elevated lipase level Cholelithiasis with chronic cholecystitis. GERD DVT prophylaxis Patient will be continued on IV hydration and pain management with Dilaudid. Patient will be placed on Catapres patch 0.1-0.2 mg since the patient is not rhona erating oral diet at this time. Continue to follow closely and adjust medications as needed.. Further recommendations based on the clinical course. Time with Patient: Greater than 30
[2019-03-24] MEDS: oxyCODONE-APAP 5-325MG 1 EACH TAB PO PRN ×3 (02:11→21:00)
[2019-03-24] MEDS: KETOROLAC 30 MG/ML 1 ML VIAL IVP SCH ×3 (02:11→14:57)
[2019-03-24] MEDS: HYDROmorphone 1 MG/ML 1 ML SYRINGE IVP PRN ×6 (03:16→22:06)
[2019-03-24] MEDS: SODIUM CHLORIDE 0.9% 1,000 ML IV SCH ×3 (03:17→18:32)
[2019-03-24] MEDS: PIPERACILLIN-TAZOBACTAM 3.375 GM in SODIUM CHLORIDE 0.9% 100 ML IVPB SCH ×3 (05:08→21:00)
[2019-03-24] MEDS: HEPARIN SODIUM,PORCINE 5,000 UNIT/ML 1 ML VIAL SQ SCH ×2 (05:08→18:50)
[2019-03-24 08:02] LABS: ALT 242 U/L (21-72); AST 79 U/L (17-59); African American GFR (CKD) >90 (>60 ml/min/1.73 sqM); Albumin 3.1 g/dL (3.5-5.0); Alkaline Phosphatase 60 U/L (38-126); Amylase 264 U/L (30-110); Anion Gap 8 mmol/L; Blood Urea Nitrogen 16 mg/dL (9-20); Calcium 7.9 mg/dL (8.4-10.2); Carbon Dioxide 28 mmol/L (22-30); Chloride 102 mmol/L (98-107); Glucose 83 mg/dL (74-99); Potassium 3.7 mmol/L (3.5-5.1); Sodium 138 mmol/L (137-145); Total Bilirubin 2.1 mg/dL (0.2-1.3); Total Protein 5.6 g/dL (6.3-8.2)
[2019-03-24 08:04] LABS: Basophils # (A) 0.1 k/uL (0-0.2); Basophils % (A) 1 %; Eosinophils # (A) 0.1 k/uL (0-0.7); Eosinophils % (A) 1 %; HCT 38.8 % (39.0-53.0); Lymphocytes % (A) 7 %; MCH 28.9 pg (25.0-35.0); MCHC 33.4 g/dL (31.0-37.0); MCV 86.5 fL (80.0-100.0); Mean Platelet Volume 7.5; Monocytes # (A) 0.7 k/uL (0-1.0); Monocytes % (A) 5 %; Neutrophils # (A) 13.2 k/uL (1.3-7.7); Neutrophils % (A) 87 %; Platelet Count 181 k/uL (150-450); RBC 4.48 m/uL (4.30-5.90); RDW 14.2 % (11.5-15.5); WBC 15.3 k/uL (3.8-10.6)
[2019-03-24] MEDS ORDERED: ADDERALL 20 MG PO SCH (09:00)
[2019-03-24] MEDS: ACETAMINOPHEN TAB 325 MG TAB PO PRN ×3 (09:12→22:42)
[2019-03-24] MEDS: PANTOPRAZOLE 40 MG/10 ML VIAL IV SCH (09:12)
[2019-03-24] MEDS: METOCLOPRAMIDE 5 MG/ML 2 ML VIAL IVP PRN ×2 (09:12→14:57)
--- NOTE | 2019-03-24 10:34 | P.PN ---
Subjective Progress Note Date: 03/24/19 Principal diagnosis: Pancreatitis Patient complaining of increased pain yesterday afternoon. Slightly better today. White blood cell count 15.3. Liver enzymes and lipase are improved. Feels bloated. Some nausea. Objective - Vital Signs Vital signs: Vital Signs Temp 98.5 F 03/24/19 07:00 Pulse 106 H 03/24/19 07:55 Resp 17 03/24/19 07:00 BP 171/101 03/24/19 07:00 Pulse Ox 96 03/24/19 07:00 Intake & Output 03/23/19 03/24/19 03/24/19 18:59 06:59 18:59 Intake Total 960 Output Total 300 Balance 960 -300 Intake: Oral 960 Output: Urine 300 Other: Voiding Method Toilet Toilet # Voids 1 3 3 - Exam Abdomen: Soft, mild distention, upper abdominal tenderness, no rebound or guarding, incisions clean and dry - Labs CBC & Chem 7: 03/24/19 07:12 03/24/19 07:12 Labs: Abnormal Lab Results - Last 24 Hours (Table) 03/24/19 03/24/19 Range/Units 07:12 07:12 WBC 15.3 H (3.8-10.6) k/uL Hct 38.8 L (39.0-53.0) % Neutrophils # 13.2 H (1.3-7.7) k/uL Creatinine 0.58 L (0.66-1.25) mg/dL Calcium 7.9 L (8.4-10.2) mg/dL Total Bilirubin 2.1 H (0.2-1.3) mg/dL AST 79 H (17-59) U/L ALT 242 H (21-72) U/L Total Protein 5.6 L (6.3-8.2) g/dL Albumin 3.1 L (3.5-5.0) g/dL Amylase 264 H (30-110) U/L Lipase 1503 H (23-300) U/L Assessment and Plan (1) Choledocholithiasis with acute cholecystitis Narrative/Plan: Will switch to nothing by mouth. Check abdominal x-rays. Recheck labs tomorrow. Current Visit: Yes Status: Acute Code(s): K80.42 - CALCULUS OF BILE DUCT W ACUTE CHOLECYSTITIS W/O OBSTRUCTION SNOMED Code(s): 96286759
[2019-03-24] MEDS: ONDANSETRON 4 MG/2 ML VIAL IVP PRN ×2 (12:54→21:02)
[2019-03-24] MEDS ORDERED: cloNIDine 0.2 MG/24HR PATCH TRANSDERM SCH (13:00)
[2019-03-24] MEDS: ADDERALL 20 MG PO SCH (14:58)
[2019-03-24] MEDS ORDERED: LABETALOL 200 MG TAB PO STA ×2 (22:56→23:23)
[2019-03-24] MEDS ORDERED: MORPHINE SULFATE 4 MG/ML SYRINGE IVP STA (22:57)
[2019-03-25] MEDS ORDERED: HYDROmorphone 1 MG/ML 1 ML SYRINGE IVP STA (00:09)
[2019-03-25] MEDS: SODIUM CHLORIDE 0.9% 1,000 ML IV SCH ×4 (00:17→21:26)
[2019-03-25] MEDS: HYDROmorphone 1 MG/ML 1 ML SYRINGE IVP PRN ×6 (01:26→13:07)
[2019-03-25] MEDS: METOCLOPRAMIDE 5 MG/ML 2 ML VIAL IVP PRN ×2 (01:31→14:59)
[2019-03-25] MEDS: oxyCODONE-APAP 5-325MG 1 EACH TAB PO PRN ×3 (03:15→12:26)
[2019-03-25] MEDS: PIPERACILLIN-TAZOBACTAM 3.375 GM in SODIUM CHLORIDE 0.9% 100 ML IVPB SCH ×3 (05:45→21:19)
[2019-03-25] MEDS: HEPARIN SODIUM,PORCINE 5,000 UNIT/ML 1 ML VIAL SQ SCH ×2 (05:45→17:31)
[2019-03-25] MEDS: PANTOPRAZOLE 40 MG/10 ML VIAL IV SCH (07:24)
[2019-03-25] MEDS: ADDERALL 20 MG PO SCH ×2 (07:24→21:29)
--- NOTE | 2019-03-25 08:51 | XR ---
EXAMINATION TYPE: XR abdomen 2V DATE OF EXAM: 03/25/2019 COMPARISON: NONE HISTORY: Abdominal pain. Evaluate ileus. Recent pancreatitis after cholecystectomy. TECHNIQUE: 2 views of the abdomen were obtained FINDINGS: No pneumoperitoneum is seen. No dilated large or small bowel. Paucity of bowel gas in the c entral abdomen. Levoscoliosis of the lumbar spine. Lung bases are well aerated. Osseous structures ar e grossly intact. IMPRESSION: Nonobstructive bowel gas pattern. No pneumoperitoneum.
[2019-03-25 09:14] LABS: ALT 173 U/L (21-72); AST 53 U/L (17-59); African American GFR (CKD) >90 (>60 ml/min/1.73 sqM); Albumin 3.3 g/dL (3.5-5.0); Alkaline Phosphatase 70 U/L (38-126); Anion Gap 8 mmol/L; Blood Urea Nitrogen 10 mg/dL (9-20); Calcium 8.2 mg/dL (8.4-10.2); Carbon Dioxide 26 mmol/L (22-30); Chloride 103 mmol/L (98-107); Glucose 90 mg/dL (74-99); Potassium 3.5 mmol/L (3.5-5.1); Sodium 137 mmol/L (137-145); Total Bilirubin 1.7 mg/dL (0.2-1.3); Total Protein 5.9 g/dL (6.3-8.2)
[2019-03-25 09:45] LABS: Basophils # (A) 0.1 k/uL (0-0.2); Basophils % (A) 1 %; Eosinophils # (A) 0.1 k/uL (0-0.7); Eosinophils % (A) 1 %; HCT 33.8 % (39.0-53.0); HGB 11.4 gm/dL (13.0-17.5); Lymphocytes # (A) 1.1 k/uL (1.0-4.8); Lymphocytes % (A) 8 %; MCH 28.8 pg (25.0-35.0); MCHC 33.7 g/dL (31.0-37.0); MCV 85.4 fL (80.0-100.0); Mean Platelet Volume 8.1; Monocytes # (A) 0.7 k/uL (0-1.0); Monocytes % (A) 5 %; Neutrophils # (A) 11.5 k/uL (1.3-7.7); Neutrophils % (A) 85 %; Platelet Count 215 k/uL (150-450); RBC 3.95 m/uL (4.30-5.90); RDW 13.4 % (11.5-15.5); WBC 13.5 k/uL (3.8-10.6)
[2019-03-25] MEDS: ONDANSETRON 4 MG/2 ML VIAL IVP PRN ×2 (10:50→21:19)
[2019-03-25] MEDS: IOPAMIDOL-300 CONTRAST 30 ML VIAL (ORAL USE) PO PRN ×2 (10:50→12:07)
--- NOTE | 2019-03-25 13:05 | CT ---
EXAMINATION TYPE: CT abdomen pelvis w con DATE OF EXAM: 03/25/2019 COMPARISON: None INDICATION: Recent cholecystectomy, possible pancreatitis DLP: 1688.4 mGycm, Automated exposure control for dose reduction was used. CONTRAST: 100 mL of Isovue 300. Study performed with Oral Contrast TECHNIQUE: Axial images were obtained from above the diaphragm to the pubic rami in the axial plane a t 5 mm thick sections. Reconstructed images are reviewed on the computer in the coronal plane. FINDINGS: Limited CT sections are obtained the lung bases. The lung bases are clear. CT ABDOMEN: Liver: Normal Spleen: Normal Pancreas: There is significant inflammatory changes extending anterior to the head of the pancreas. T his surrounds the inferior portion of the antrum of the stomach. Some wall thickening may be present. Some mild duodenal wall thickening may be present. Findings appear to be most likely related to acut e pancreatitis. Adrenal glands: The adrenal glands are normal. Gallbladder: Surgically absent Kidneys: No masses are evident. No hydronephrosis is present. No cysts are present. Delayed images were obtained through the kidneys, which remain unremarkable. Aorta: Normal Inferior vena cava: Normal. CT PELVIS: Moderate free fluid is within the pelvis Some thickening of the duodenum may be present. Thickening of the antrum may be present. This likely reactionary to the suspected appendicitis or possibly related to the recent cholecystectomy. Remainin g loops of bowel appear normal. Oral contrast extends to the distal small bowel loops. Colon is decom pressed. There are loops of bowel which are incompletely distended or lack oral contrast limiting the ir evaluation. Appendix: Normal as visualized. Urinary bladder: Normal. Genitourinary structures: Prostate is normal Osseous structures: No suspicious lytic or sclerotic lesions. IMPRESSIONS: 1. Extensive inflammatory changes adjacent to the head of the pancreas can be compatible with pancre atitis. No pseudocyst formation or abscess formation is evident at this time. Follow-up is recommende d.
[2019-03-25] MEDS ORDERED: NALOXONE 0.4 MG/ML 1 ML VIAL IV PRN (13:09)
[2019-03-25] MEDS: HYDROmorphone PCA 10 MG/50 ML BAG IV PRN ×2 (14:21→21:05)
--- NOTE | 2019-03-25 14:30 | P.PN ---
Subjective Progress Note Date: 03/25/19 Principal diagnosis: Pancreatitis Patient still complaining of abdominal pain. States it was bad again last night. Overall compared to 48 hours ago he says he does feel somewhat better. Some nausea but no vomiting. Feels bloated after taking in contrast for CAT scan that was ordered and completed this morning. His liver enzymes, pancreatic enzymes, and white blood cell count improved today. T-max 99. No tachycardia. Patient's CAT scan reviewed. Significant inflammatory changes at the head of the pancreas. Small amount of intra-abdominal pneumoperitoneum still present from recent cholecystectomy. No extravasation noted. Some fluid in the pelvis and also in the gallbladder fossa. Objective - Vital Signs Vital signs: Vital Signs Temp 99 F 03/25/19 07:00 Pulse 98 03/25/19 07:00 Resp 17 03/25/19 07:00 BP 166/94 03/25/19 07:00 Pulse Ox 99 03/25/19 07:00 Intake & Output 03/24/19 03/25/19 03/25/19 18:59 06:59 18:59 Intake Total 50 2000 Output Total 300 Balance -971 86 4494 Intake: Intake, IV Titration 800 Amount Sodium Chloride 0.9% 1, 800 000 ml @ 150 mls/hr IV . Q6H40M ON LICENSE OF [facility] Rx#:[id number] Oral 50 1200 Output: Urine 300 Other: Voiding Method Toilet Toilet # Voids 3 3 3 - Exam Abdomen: Soft, mild distention, upper abdominal tenderness, incisions clean and dry - Labs CBC & Chem 7: 03/25/19 07:51 03/25/19 07:51 Labs: Abnormal Lab Results - Last 24 Hours (Table) 03/25/19 03/25/19 Range/Units 07:51 07:51 WBC 13.5 H (3.8-10.6) k/uL RBC 3.95 L (4.30-5.90) m/uL Hgb 11.4 L (13.0-17.5) gm/dL Hct 33.8 L (39.0-53.0) % Neutrophils # 11.5 H (1.3-7.7) k/uL Creatinine 0.52 L (0.66-1.25) mg/dL Calcium 8.2 L (8.4-10.2) mg/dL Total Bilirubin 1.7 H (0.2-1.3) mg/dL ALT 173 H (21-72) U/L Total Protein 5.9 L (6.3-8.2) g/dL Albumin 3.3 L (3.5-5.0) g/dL Microbiology - Last 24 Hours (Table) 03/24/19 10:50 Blood Culture - Preliminary Blood No Growth after 24 hours Assessment and Plan (1) Choledocholithiasis with acute cholecystitis Narrative/Plan: Patient with significant pancreatitis after recent ERCP. CAT scan findings discussed with the patient in detail. Will modify analgesics by adding IV Tylenol and switching to Dilaudid RECOVERY ANALYST for now. We'll follow closely. Current Visit: Yes Status: Acute Code(s): K80.42 - CALCULUS OF BILE DUCT W ACUTE CHOLECYSTITIS W/O OBSTRUCTION SNOMED Code(s): 79705541
[2019-03-25] MEDS: ACETAMINOPHEN IV (For NPO) 1,000 MG in EMPTY BAG 1 BAG IVPB SCH (17:31)
[2019-03-25] MEDS ORDERED: MD COMMUNICATION TO PHARMACY 1 EACH MISC PO PRN (17:54)
[2019-03-25] MEDS ORDERED: NON-FORMULARY DRUG PO SCH (22:00)
--- NOTE | 2019-03-25 22:30 | P.PN ---
Subjective Progress Note Date: 03/24/19 Principal diagnosis: Acute pancreatitis Patient is a 38-year-old male with a known history of gallstones for the past 20 years since a 18 and GERD came to ER with complaints of abdominal pain mainly right upper quadrant. Patient has been having intermittent abdominal pain. Blanca nguyen says that occasionally pain was associated with eating and subsides by itself. On the day of admission, 03/20/2019 patient has been having worsening pain for several hours which made him come to ER. Denied any fever or chills. Patient does have nausea and vomiting. no abdominal pain. ultrasound of the liver showed multiple gallstones. Patient was found to have elevated liver enzymes and bilirubin level II.3. Patient was seen by gastroenterology and had ERCP done with cholangiogram, sphincterotomy and balloon sweep of the CBD. Following the ERCP patient developed epigastric pain radiating to the back with elevated lipase level, pancreatitis. Patient was taken to or for cholecystectomy yesterday. Currently patient is status post cholecystectomy. Patient is still complaining of abdominal pain mainly epigastric region. Blood pressure is uncontrolled despite pain medications. Medicine service was consulted. Operative Findings, cholecystectomy: 1. Severe adhesive disease of the entire gallbladder to greater omentum from chronic cholecystitis 2. Acute cholecystitis identified. 3. Dome down technique performed for safe removal of gallbladder including firefly technology ERCP Impression: 1. ERCP with cholangiogram, sphincterotomy and balloon sweep of the CBD. 2. Normal CBD with no filling defect noted. 03/24/2019 Patient says that his abdominal pain is better today. Still requiring IV Dilaudid. Lipase level is trending down. General surgery is on board. Denied any fever or chills. No chest pain or shortness of breath. Current medications reviewed. Objective - Vital Signs Vital signs: Vital Signs Temp 98.5 F 03/24/19 07:00 Pulse 106 H 03/24/19 07:55 Resp 17 03/24/19 07:00 BP 171/101 03/24/19 07:00 Pulse Ox 96 03/24/19 07:00 Intake & Output 03/23/19 03/24/19 03/24/19 18:59 06:59 18:59 Intake Total 960 Output Total 300 Balance 960 -300 Intake: Oral 960 Output: Urine 300 Other: Voiding Method Toilet Toilet # Voids 1 3 3 - Exam PHYSICAL EXAMINATION: Patient is lying in the bed comfortably, no acute distress, awake alert and oriented.. HEENT: Normocephalic. Neck is supple. Pupils reactive. Nostrils clear. Oral cavity is moist. Ears reveal no drainage. Neck reveals no JVD, carotid bruits, or thyromegaly. CHEST EXAMINATION: Trachea is central. Symmetrical expansion. Lung niño clear to auscultation and percussion. CARDIAC: Normal S1, S2 with no gallops. No murmurs ABDOMEN: Soft. Tenderness of the epigastric region. Surgical site intact. Bowel sounds normal. No organomegaly. No abdominal bruits. Extremities: reveal no edema. No clubbing or cyanosis Neurologically awake, alert, oriented x3 with well-coordinated movements. No focal deficits noted Skin: No rash or skin lesions. Psychiatric: Coperative. Nonsuicidal Musculoskeletal: No joint swelling or deformity. Normal range of motion. - Labs CBC & Chem 7: 03/25/19 07:51 03/25/19 07:51 Labs: Abnormal Lab Results - Last 24 Hours (Table) 03/24/19 03/24/19 Range/Units 07:12 07:12 WBC 15.3 H (3.8-10.6) k/uL Hct 38.8 L (39.0-53.0) % Neutrophils # 13.2 H (1.3-7.7) k/uL Creatinine 0.58 L (0.66-1.25) mg/dL Calcium 7.9 L (8.4-10.2) mg/dL Total Bilirubin 2.1 H (0.2-1.3) mg/dL AST 79 H (17-59) U/L ALT 242 H (21-72) U/L Total Protein 5.6 L (6.3-8.2) g/dL Albumin 3.1 L (3.5-5.0) g/dL Amylase 264 H (30-110) U/L Lipase 1503 H (23-300) U/L Assessment and Plan Assessment: Elevated blood pressure likely due to pain and IV fluids. No history of hypertension. Choledocholithiasis with acute cholecystitis. Status post cholecystectomy. Elevated liver enzymes Cholelithiasis. Status post ERCP sphincterotomy Acute pancreatitis with elevated lipase level Cholelithiasis with chronic cholecystitis. GERD DVT prophylaxis Patient will be continued on IV hydration and pain management with Dilaudid. Patient will be placed on Catapres patch 0.1-0.2 mg since the patient is not tolerating oral diet at this time. Continue to follow closely and adjust medications as needed.. Further recommendations based on the clinical course. Time with Patient: Greater than 30
--- NOTE | 2019-03-25 22:32 | P.PN ---
Subjective Progress Note Date: 03/25/19 Principal diagnosis: Acute pancreatitis Patient is a 38-year-old male with a known history of gallstones for the past 20 years since a 18 and GERD came to ER with complaints of abdominal pain mainly right upper quadrant. Patient has been having intermittent abdominal pain. Blanca nguyen says that occasionally pain was associated with eating and subsides by itself. On the day of admission, 03/20/2019 patient has been having worsening pain for several hours which made him come to ER. Denied any fever or chills. Patient does have nausea and vomiting. no abdominal pain. ultrasound of the liver showed multiple gallstones. Patient was found to have elevated liver enzymes and bilirubin level II.3. Patient was seen by gastroenterology and had ERCP done with cholangiogram, sphincterotomy and balloon sweep of the CBD. Following the ERCP patient developed epigastric pain radiating to the back with elevated lipase level, pancreatitis. Patient was taken to or for cholecystectomy yesterday. Currently patient is status post cholecystectomy. Patient is still complaining of abdominal pain mainly epigastric region. Blood pressure is uncontrolled despite pain medications. Medicine service was consulted. Operative Findings, cholecystectomy: 1. Severe adhesive disease of the entire gallbladder to greater omentum from chronic cholecystitis 2. Acute cholecystitis identified. 3. Dome down technique performed for safe removal of gallbladder including firefly technology ERCP Impression: 1. ERCP with cholangiogram, sphincterotomy and balloon sweep of the CBD. 2. Normal CBD with no filling defect noted. 03/24/2019 Patient says that his abdominal pain is better today. Still requiring IV Dilaudid. Lipase level is trending down. General surgery is on board. Denied any fever or chills. No chest pain or shortness of breath. 03/25/2019 Patient says that his abdominal pain is much worse and last night and this morning. Patient has been afebrile. Lipase level improved 299 today. Bilirubin level and evidence of improving. CT of the abdominal was ordered to rule out any necrotizing pancreatitis. patient is being continued on Dilaudid IV every 3 hourly when necessary for pain. No chest pain or shortness of breath. Able to ambulate in the room. Current medications reviewed. Objective - Vital Signs Vital signs: Vital Signs Temp 98.3 F 03/25/19 21:36 Pulse 95 03/25/19 21:36 Resp 18 03/25/19 21:36 BP 172/98 03/25/19 21:36 Pulse Ox 97 03/25/19 21:36 Intake & Output 03/25/19 03/25/19 03/26/19 06:59 18:59 06:59 Intake Total 50 1999 Balance 50 1999 Intake: Intake, IV Titration 800 Amount Sodium Chloride 0.9% 1, 800 000 ml @ 150 mls/hr IV . Q6H40M [facility] Rx#:[id number] Oral 50 1200 Other: Voiding Method Toilet # Voids 3 3 2 - Exam PHYSICAL EXAMINATION: Patient is lying in the bed comfortably, no acute distress, awake alert and oriented.. HEENT: Normocephalic. Neck is supple. Pupils reactive. Nostrils clear. Oral cavity is moist. Ears reveal no drainage. Neck reveals no JVD, carotid bruits, or thyromegaly. CHEST EXAMINATION: Trachea is central. Symmetrical expansion. Lung niño clear to auscultation and percussion. CARDIAC: Normal S1, S2 with no gallops. No murmurs ABDOMEN: Soft. Tenderness of the epigastric region. Surgical site intact. Bowel sounds normal. No organomegaly. No abdominal bruits. Extremities: reveal no edema. No clubbing or cyanosis Neurologically awake, alert, oriented x3 with well-coordinated movements. No fo clary deficits noted Skin: No rash or skin lesions. Psychiatric: Coperative. Nonsuicidal Musculoskeletal: No joint swelling or deformity. Normal range of motion. - Labs CBC & Chem 7: 03/25/19 07:51 03/25/19 07:51 Labs: Abnormal Lab Results - Last 24 Hours (Table) 03/25/19 03/25/19 Range/Units 07:51 07:51 WBC 13.5 H (3.8-10.6) k/uL RBC 3.95 L (4.30-5.90) m/uL Hgb 11.4 L (13.0-17.5) gm/dL Hct 33.8 L (39.0-53.0) % Neutrophils # 11.5 H (1.3-7.7) k/uL Creatinine 0.52 L (0.66-1.25) mg/dL Calcium 8.2 L (8.4-10.2) mg/dL Total Bilirubin 1.7 H (0.2-1.3) mg/dL ALT 173 H (21-72) U/L Total Protein 5.9 L (6.3-8.2) g/dL Albumin 3.3 L (3.5-5.0) g/dL Microbiology - Last 24 Hours (Table) 03/24/19 10:50 Blood Culture - Preliminary Blood No Growth after 24 hours Assessment and Plan Assessment: Elevated blood pressure likely due to pain and IV fluids. No history of hypertension. Choledocholithiasis with acute cholecystitis. Status post cholecystectomy. Elevated liver enzymes Cholelithiasis. Status post ERCP sphincterotomy Acute pancreatitis with elevated lipase level Cholelithiasis with chronic cholecystitis. GERD DVT prophylaxis Patient will be continued on IV hydration and pain management with Dilaudid. Patient will be placed on Catapres patch 0.1-0.2 mg since the patient is not tolerating oral diet at this time. Continue to follow closely and adjust medications as needed.. Further recommendations based on the clinical course. Time with Patient: Greater than 30
[2019-03-26] MEDS: ACETAMINOPHEN IV (For NPO) 1,000 MG in EMPTY BAG 1 BAG IVPB SCH ×3 (00:03→12:47)
[2019-03-26] MEDS: METOCLOPRAMIDE 5 MG/ML 2 ML VIAL IVP PRN ×2 (01:36→12:23)
[2019-03-26] MEDS ORDERED: cloNIDine 0.2 MG/24HR PATCH TRANSDERM SCH (01:45)
[2019-03-26] MEDS: oxyCODONE-APAP 5-325MG 1 EACH TAB PO PRN (04:00)
[2019-03-26] MEDS: HYDROmorphone PCA 10 MG/50 ML BAG IV PRN ×3 (04:40→17:01)
[2019-03-26] MEDS: SODIUM CHLORIDE 0.9% 1,000 ML IV SCH ×5 (04:41→23:45)
[2019-03-26] MEDS: HEPARIN SODIUM,PORCINE 5,000 UNIT/ML 1 ML VIAL SQ SCH ×2 (05:28→18:35)
[2019-03-26] MEDS: PIPERACILLIN-TAZOBACTAM 3.375 GM in SODIUM CHLORIDE 0.9% 100 ML IVPB SCH ×3 (05:28→22:27)
[2019-03-26] MEDS: ADDERALL 20 MG PO SCH ×3 (05:55→19:13)
[2019-03-26 08:21] LABS: ALT 132 U/L (21-72); AST 38 U/L (17-59); African American GFR (CKD) >90 (>60 ml/min/1.73 sqM); Albumin 3.4 g/dL (3.5-5.0); Alkaline Phosphatase 83 U/L (38-126); Anion Gap 10 mmol/L; Blood Urea Nitrogen 9 mg/dL (9-20); Calcium 8.2 mg/dL (8.4-10.2); Carbon Dioxide 26 mmol/L (22-30); Chloride 99 mmol/L (98-107); Glucose 76 mg/dL (74-99); Potassium 3.2 mmol/L (3.5-5.1); Sodium 135 mmol/L (137-145); Total Bilirubin 1.3 mg/dL (0.2-1.3); Total Protein 6.1 g/dL (6.3-8.2)
[2019-03-26 08:29] LABS: Basophils % (A) 0 %; Eosinophils # (A) 0.2 k/uL (0-0.7); Eosinophils % (A) 1 %; HCT 31.6 % (39.0-53.0); HGB 10.6 gm/dL (13.0-17.5); Lymphocytes # (A) 0.8 k/uL (1.0-4.8); Lymphocytes % (A) 6 %; MCH 28.6 pg (25.0-35.0); MCHC 33.3 g/dL (31.0-37.0); MCV 85.7 fL (80.0-100.0); Mean Platelet Volume 7.5; Monocytes # (A) 0.8 k/uL (0-1.0); Monocytes % (A) 6 %; Neutrophils # (A) 12.1 k/uL (1.3-7.7); Neutrophils % (A) 86 %; Platelet Count 215 k/uL (150-450); RBC 3.69 m/uL (4.30-5.90); RDW 13.7 % (11.5-15.5)
[2019-03-26] MEDS: PANTOPRAZOLE 40 MG/10 ML VIAL IV SCH (08:42)
[2019-03-26] MEDS: ONDANSETRON 4 MG/2 ML VIAL IVP PRN ×2 (09:49→17:00)
[2019-03-26 13:14] VITALS: BMI 30.7
--- NOTE | 2019-03-26 17:56 | P.PN ---
Subjective Progress Note Date: 03/26/19 Principal diagnosis: Pancreatitis Patient feels better today. Much better pain relief with the CARDROOM WORKER he states. Labs are all improved. T-max 99.2. Heart remains low 100s. Overall pain is improved. Objective - Vital Signs Vital signs: Vital Signs Temp 98.6 F 03/26/19 14:16 Pulse 16 L 03/26/19 14:16 Resp 15 03/26/19 14:16 BP 183/97 03/26/19 14:16 Pulse Ox 95 03/26/19 14:16 Intake & Output 03/25/19 03/26/19 03/26/19 18:59 06:59 18:59 Intake Total 1999 Balance 1999 Weight 99.79 kg Intake: Intake, IV Titration 800 Amount Sodium Chloride 0.9% 1, 800 000 ml @ 150 mls/hr IV . Q6H40M [facility] Rx#:[id number] Oral 1200 Other: Voiding Method Toilet # Voids 3 1 - Exam Abdomen: Soft, nondistended, mild epigastric and mid abdominal tenderness - Labs CBC & Chem 7: 03/26/19 07:24 03/26/19 07:24 Labs: Abnormal Lab Results - Last 24 Hours (Table) 03/26/19 03/26/19 Range/Units 07:24 07:24 WBC 14.0 H (3.8-10.6) k/uL RBC 3.69 L (4.30-5.90) m/uL Hgb 10.6 L (13.0-17.5) gm/dL Hct 31.6 L (39.0-53.0) % Neutrophils # 12.1 H (1.3-7.7) k/uL Lymphocytes # 0.8 L (1.0-4.8) k/uL Sodium 135 L (137-145) mmol/L Potassium 3.2 L (3.5-5.1) mmol/L Creatinine 0.47 L (0.66-1.25) mg/dL Calcium 8.2 L (8.4-10.2) mg/dL ALT 132 H (21-72) U/L Total Protein 6.1 L (6.3-8.2) g/dL Albumin 3.4 L (3.5-5.0) g/dL Microbiology - Last 24 Hours (Table) 03/24/19 10:50 Blood Culture - Preliminary Blood No Growth after 48 hours Assessment and Plan (1) Choledocholithiasis with acute cholecystitis Narrative/Plan: Continue nothing by mouth for pancreatitis. Likely to begin diet tomorrow. Keep CARDROOM WORKER for pain control. Ambulate. Current Visit: Yes Status: Acute Code(s): K80.42 - CALCULUS OF BILE DUCT W ACUTE CHOLECYSTITIS W/O OBSTRUCTION SNOMED Code(s): 59415949
[2019-03-26] MEDS ORDERED: Potassium Replacement Protocol 1 EACH MISC MISCELLANE PRN (18:08)
[2019-03-26] MEDS: POTASSIUM CHLORIDE ER 20 MEQ TAB.ER PO SCH ×2 (19:54→22:24)
--- NOTE | 2019-03-26 23:37 | P.PN ---
Subjective Progress Note Date: 03/26/19 Principal diagnosis: Acute pancreatitis Patient is a 38-year-old male with a known history of gallstones for the past 20 years since a 18 and GERD came to ER with complaints of abdominal pain mainly right upper quadrant. Patient has been having intermittent abdominal pain. Blanca nguyen says that occasionally pain was associated with eating and subsides by itself. On the day of admission, 03/20/2019 patient has been having worsening pain for several hours which made him come to ER. Denied any fever or chills. Patient does have nausea and vomiting. no abdominal pain. ultrasound of the liver showed multiple gallstones. Patient was found to have elevated liver enzymes and bilirubin level II.3. Patient was seen by gastroenterology and had ERCP done with cholangiogram, sphincterotomy and balloon sweep of the CBD. Following the ERCP patient developed epigastric pain radiating to the back with elevated lipase level, pancreatitis. Patient was taken to or for cholecystectomy yesterday. Currently patient is status post cholecystectomy. Patient is still complaining of abdominal pain mainly epigastric region. Blood pressure is uncontrolled despite pain medications. Medicine service was consulted. Operative Findings, cholecystectomy: 1. Severe adhesive disease of the entire gallbladder to greater omentum from chronic cholecystitis 2. Acute cholecystitis identified. 3. Dome down technique performed for safe removal of gallbladder including firefly technology ERCP Impression: 1. ERCP with cholangiogram, sphincterotomy and balloon sweep of the CBD. 2. Normal CBD with no filling defect noted. 03/24/2019 Patient says that his abdominal pain is better today. Still requiring IV Dilaudid. Lipase level is trending down. General surgery is on board. Denied any fever or chills. No chest pain or shortness of breath. 03/25/2019 Patient says that his abdominal pain is much worse and last night and this morning. Patient has been afebrile. Lipase level improved 299 today. Bilirubin level and evidence of improving. CT of the abdominal was ordered to rule out any necrotizing pancreatitis. patient is being continued on Dilaudid IV every 3 hourly when necessary for pain. No chest pain or shortness of breath. Able to ambulate in the room. 03/26/2019 Patient's abdominal pain is better controlled with Dilaudid DURABILITY ENGINEER pump. Otherwise CT abdomen showed improving inflammation. Currently nothing by mouth. Potassium 3.2 today which is being replaced. Patient is tachycardic otherwise. Lung sounds clear. No cough is from production. No chest pain or shortness breath. Patient is able to ambulating in the room. Still having significant pain. Current medications reviewed. Objective - Vital Signs Vital signs: Vital Signs Temp 99.4 F 03/26/19 20:56 Pulse 117 H 03/26/19 20:56 Resp 17 03/26/19 20:56 BP 178/105 03/26/19 20:56 Pulse Ox 94 L 03/26/19 20:56 Intake & Output 03/26/19 03/26/19 03/27/19 06:59 18:59 06:59 Weight 99.79 kg Other: Voiding Method Toilet # Voids 1 2 2 - Exam PHYSICAL EXAMINATION: Patient is lying in the bed comfortably, no acute distress, awake alert and oriented.. HEENT: Normocephalic. Neck is supple. Pupils reactive. Nostrils clear. Oral cavity is moist. Ears reveal no drainage. Neck reveals no JVD, carotid bruits, or thyromegaly. CHEST EXAMINATION: Trachea is central. Symmetrical expansion. Lung niño clear to auscultation and percussion. CARDIAC: Normal S1, S2 with no gallops. No murmurs ABDOMEN: Soft. Tenderness of the epigastric region. Surgical site intact. Bowel sounds normal. No organomegaly. No abdominal bruits. Extremities: reveal no edema. No clubbing or cyanosis Neurologically awake, alert, oriented x3 with well-coordinated movements. No focal deficits noted Skin: No rash or skin lesions. Psychiatric: Coperative. Nonsuicidal Musculoskeletal: No joint swelling or deformity. Normal range of motion. - Labs CBC & Chem 7: 03/26/19 07:24 03/26/19 07:24 Labs: Abnormal Lab Results - Last 24 Hours (Table) 03/26/19 03/26/19 Range/Units 07:24 07:24 WBC 14.0 H (3.8-10.6) k/uL RBC 3.69 L (4.30-5.90) m/uL Hgb 10.6 L (13.0-17.5) gm/dL Hct 31.6 L (39.0-53.0) % Neutrophils # 12.1 H (1.3-7.7) k/uL Lymphocytes # 0.8 L (1.0-4.8) k/uL Sodium 135 L (137-145) mmol/L Potassium 3.2 L (3.5-5.1) mmol/L Creatinine 0.47 L (0.66-1.25) mg/dL Calcium 8.2 L (8.4-10.2) mg/dL ALT 132 H (21-72) U/L Total Protein 6.1 L (6.3-8.2) g/dL Albumin 3.4 L (3.5-5.0) g/dL Microbiology - Last 24 Hours (Table) 03/24/19 10:50 Blood Culture - Preliminary Blood No Growth after 48 hours Assessment and Plan Assessment: Elevated blood pressure likely due to pain and IV fluids. No history of hypertension. Choledocholithiasis with acute cholecystitis. Status post cholecystectomy. Elevated liver enzymes Cholelithiasis. Status post ERCP sphincterotomy Acute pancreatitis with elevated lipase level. lipase level is trending down. Cholelithiasis with chronic cholecystitis. GERD DVT prophylaxis Patient will be continued on IV hydration and pain management with Dilaudid. Continued on antibiotics in the form of Zosyn. DURABILITY ENGINEER pump for pain management. Patient will be placed on Catapres patch 0.1-0.2 mg since the patient is not tolerating oral diet at this time. Continue to follow closely and adjust medications as needed.. Further recommendations based on the clinical course. Time with Patient: Greater than 30
[2019-03-26] MEDS: ALPRAZolam 0.5 MG TAB PO PRN (23:44)
[2019-03-27] MEDS: HYDROmorphone PCA 10 MG/50 ML BAG IV PRN ×3 (02:07→20:14)
[2019-03-27] MEDS ORDERED: HEPARIN SODIUM,PORCINE 5,000 UNIT/ML 1 ML VIAL ONE (05:30)
[2019-03-27] MEDS: PIPERACILLIN-TAZOBACTAM 3.375 GM in SODIUM CHLORIDE 0.9% 100 ML IVPB SCH ×3 (05:50→22:26)
[2019-03-27] MEDS: HEPARIN SODIUM,PORCINE 5,000 UNIT/ML 1 ML VIAL SQ SCH ×2 (05:51→19:00)
[2019-03-27] MEDS: SODIUM CHLORIDE 0.9% 1,000 ML IV SCH ×4 (07:59→18:57)
[2019-03-27] MEDS: PANTOPRAZOLE 40 MG/10 ML VIAL IV SCH ×2 (08:10→08:15)
[2019-03-27] MEDS ORDERED: SIMETHICONE 40 MG/0.6 ML DROPS 2,000 MG/30 ML BOTTLE PO PRN (08:51)
[2019-03-27] MEDS: ADDERALL 20 MG PO SCH ×3 (08:55→19:41)
[2019-03-27 10:35] LABS: African American GFR (CKD) >90 (>60 ml/min/1.73 sqM); Anion Gap 9 mmol/L; Blood Urea Nitrogen 8 mg/dL (9-20); Carbon Dioxide 25 mmol/L (22-30); Chloride 99 mmol/L (98-107); Glucose 83 mg/dL (74-99); Potassium 3.2 mmol/L (3.5-5.1); Sodium 133 mmol/L (137-145)
[2019-03-27] MEDS ORDERED: Potassium Replacement Protocol 1 EACH MISC MISCELLANE PRN (11:06)
[2019-03-27] MEDS: POTASSIUM CHLORIDE ER 20 MEQ TAB.ER PO SCH ×2 (11:41→13:29)
[2019-03-27] MEDS: METOCLOPRAMIDE 5 MG/ML 2 ML VIAL IVP PRN (11:47)
--- NOTE | 2019-03-27 12:47 | P.PN ---
Subjective Progress Note Date: 03/27/19 CHIEF COMPLAINT: Acute hydrops cholecystitis HISTORY OF PRESENT ILLNESS: The patient is a 38-year-old female postop day 5 status post cholecystectomy for acute cholecystitis. He had severe pancreatitis following ERCP. Abdominal pain now improved with MAINTENANCE ANALYST pain pump. He still reports discomfort along the epigastrium radiating to his back is now tolerable. He denies any right upper quadrant pain. ROS: No reports of nausea and vomiting. No fevers or chills. No productive sputum PHYSICAL EXAM: VITAL SIGNS: Reviewed CONSTITUTIONAL: Well developed and in no acute distress. EYES: Conjuctivae without sclera icterus. Extraocular movements grossly intact. HEAD, EARS, NOSE, THROAT: Moist buccal mucosa. Head is atraumatic, normocephalic. Hears conversational speech. No nasal drainage. NECK: Supple. No thyroidomegaly. RESPIRATORY: Non-labored respirations and equal bilateral excursions. CARDIOVASCULAR: Palpable 2+ radial pulses. Regular rate. Regular rhythm. ABDOMEN: Incisions clean dry and intact. Soft. Dressing left upper quadrant intact. Tender along the epigastrium. MUSCULOSKELETAL: No gross deformity of the lower extremities noted. No clubbing. No cyanosis. SKIN: Good skin turgor. Well perfused. NEUROLOGIC: Cranial nerves I through XII grossly intact. No focal or late ralizing signs. PSYCH: Appropriate affect. Alert and oriented to person, place and time. CLINCAL LABS: WBC elevated. Lipase is normal. ASSESSMENT: 1. Acute moderate to severe pancreatitis post ERCP 2. Acute cholecystitis PLAN: 1. Start clears 2. Consultation to infectious disease for antibiotic management as he has persistent leukocytosis on Zosyn 3. Continue full hospitalization, disposition 96 hours. Objective - Vital Signs Vital signs: Vital Signs Temp 98.4 F 03/27/19 07:00 Pulse 107 H 03/27/19 07:00 Resp 17 03/27/19 07:00 BP 160/94 03/27/19 07:00 Pulse Ox 95 03/27/19 07:00 Intake & Output 03/26/19 03/27/19 03/27/19 18:59 06:59 18:59 Weight 99.79 kg Other: Voiding Method Toilet # Voids 2 2 - Labs CBC & Chem 7: 03/29/19 10:03 03/29/19 10:03 Labs: Abnormal Lab Results - Last 24 Hours (Table) 03/27/19 Range/Units 09:22 Sodium 133 L (137-145) mmol/L Potassium 3.2 L (3.5-5.1) mmol/L BUN 8 L (9-20) mg/dL Creatinine 0.44 L (0.66-1.25) mg/dL Calcium 8.0 L (8.4-10.2) mg/dL Microbiology - Last 24 Hours (Table) 03/24/19 10:50 Blood Culture - Preliminary Blood No Growth after 48 hours Assessment and Plan (1) Choledocholithiasis with acute cholecystitis Status: Acute Code(s): K80.42 - CALCULUS OF BILE DUCT W ACUTE CHOLECYSTITIS W/O OBSTRUCTION SNOMED Code(s): 55375867 (2) Choledocholithiasis with acute cholecystitis with obstruction Status: Acute Code(s): K80.43 - CALCULUS OF BILE DUCT W ACUTE CHOLECYSTITIS WITH OBSTRUCTION SNOMED Code(s): 36807689 (3) ADHD (attention deficit hyperactivity disorder) Status: Acute Code(s): F90.9 - ATTENTION-DEFICIT HYPERACTIVITY DISORDER, UNSPECIFIED TYPE SNOMED Code(s): 756434734 (4) Post-ERCP acute pancreatitis Status: Acute Code(s): K91.89 - OTH POSTPROCEDURAL COMPLICATIONS AND DISORDERS OF DGSTV SYS; K85.90 - ACUTE PANCREATITIS WITHOUT NECROSIS OR INFECTION, UNSP SNOMED Code(s): 126376514 (5) Cholelithiasis Status: Acute Code(s): K80.20 - CALCULUS OF GALLBLADDER W/O CHOLECYSTITIS W/O OBSTRUCTION SNOMED Code(s): 103401817 (6) Elevated LFTs Status: Acute Code(s): R94.5 - ABNORMAL RESULTS OF LIVER FUNCTION STUDIES SNOMED Code(s): 090733844
[2019-03-27] MEDS ORDERED: diphenhydrAMINE 50 MG/ML 1 ML VIAL IVP PRN (13:12)
[2019-03-27] MEDS: oxyCODONE-APAP 5-325MG 1 EACH TAB PO PRN ×3 (13:29→22:26)
[2019-03-27] MEDS: ONDANSETRON 4 MG/2 ML VIAL IVP PRN (18:04)
[2019-03-28] MEDS: SODIUM CHLORIDE 0.9% 1,000 ML IV SCH ×3 (02:59→09:31)
[2019-03-28] MEDS: HEPARIN SODIUM,PORCINE 5,000 UNIT/ML 1 ML VIAL SQ SCH ×2 (05:21→17:48)
[2019-03-28] MEDS: PIPERACILLIN-TAZOBACTAM 3.375 GM in SODIUM CHLORIDE 0.9% 100 ML IVPB SCH (05:21)
[2019-03-28 07:47] LABS: HCT 31.6 % (39.0-53.0); HGB 10.4 gm/dL (13.0-17.5); MCH 28.2 pg (25.0-35.0); MCHC 32.7 g/dL (31.0-37.0); Mean Platelet Volume 6.7; Platelet Count 253 k/uL (150-450); RBC 3.68 m/uL (4.30-5.90); RDW 13.2 % (11.5-15.5); WBC 14.3 k/uL (3.8-10.6)
[2019-03-28 08:02] LABS: ALT 82 U/L (21-72); AST 34 U/L (17-59); African American GFR (CKD) >90 (>60 ml/min/1.73 sqM); Albumin 3.1 g/dL (3.5-5.0); Alkaline Phosphatase 83 U/L (38-126); Anion Gap 10 mmol/L; Blood Urea Nitrogen 9 mg/dL (9-20); Calcium 8.2 mg/dL (8.4-10.2); Carbon Dioxide 30 mmol/L (22-30); Chloride 95 mmol/L (98-107); Glucose 87 mg/dL (74-99); Sodium 135 mmol/L (137-145); Total Bilirubin 1.1 mg/dL (0.2-1.3); Total Protein 5.8 g/dL (6.3-8.2)
--- NOTE | 2019-03-28 08:08 | P.CONS ---
History of Present Illness - Reason for Consult Consult date: 03/27/19 Leukocytosis pancreatitis and antibiotic guidance Requesting physician: Jennifer Smith - Chief Complaint Abdominal pain 2 days before presentation - History of Present Illness Patient is a 52-year-old male presenting to the ER at [facility] with a few days history of abdominal pain in this patient who did have a history of gallstone and recurrent episodes of right upper quadrant abdominal pain especially associated with intake of fatty meal the patient current episode started a few days before he presented to hospital pain was mostly in the epigastric and right upper quadrant area sharp in nature almost 7- 8 of 10 no radiation with associated nausea but no vomiting and no high-grade fever, patient had did have an ultrasound of the gallbladder with evidence of multiple gallstones patient did have elevated liver enzymes and is status post ERCP with sphincterotomy followed by robotic cholecystectomy patient has been treated with IV Zosyn however he was noticed to have persistent elevated white count however on 14,000 that prompted this infection disease consultation The patient is currently afebrile, patient still having abdominal pain though seemed to have slightly decreased intensity some nausea but no vomiting denies having any diarrhea and no urinary symptoms Review of Systems Positive points has been mentioned in HPI rest of the systems are negative Past Medical History Past Medical History: No Reported History History of Any Multi-Drug Resistant Organisms: None Reported Past Surgical History: No Surgical Hx Reported Past Anesthesia/Blood Transfusion Reactions: No Reported Reaction Past Psychological History: ADD/ADHD Smoking Status: Never smoker Past Alcohol Use History: None Reported Past Drug Use History: None Reported Medications and Allergies Home Medications Medication Instructions Recorded Confirmed Type Dextroamphetamine/Amphetamine 20 mg PO BID 03/20/19 03/20/19 History [Adderall] Hydrocodone/Acetaminophen [Sullivan 1 tab PO Q4HR PRN 3 Days #18 tab 03/22/19 Rx 5-325] Allergies Allergy/AdvReac Type Severity Reaction Status Date / Time No Known Allergies Allergy Verified 03/22/19 14:49 Physical Exam Vitals: Vital Signs Temp Pulse Resp BP BP Pulse Ox 03/27/19 07:00 98.4 F 107 H 17 160/94 95 03/27/19 02:13 170/60 03/27/19 01:30 99.0 F 116 H 17 167/109 96 03/26/19 20:56 99.4 F 117 H 17 178/105 94 L 03/26/19 20:00 150/80 180/90 03/26/19 17:10 15 Intake and Output 03/26/19 03/27/19 03/27/19 22:59 06:59 14:59 Intake Total 1150 Balance 1150 Intake: Intake, IV Titration 1150 Amount Piperacillin-Tazobactam 3 100 .375 gm In Sodium Chloride 0.9% 100 ml @ 25 mls/hr IVPB Q8H [facility] Rx#: [id number] Sodium Chloride 0.9% 1, 1050 000 ml @ 150 mls/hr IV . Q6H40M [facility] Rx#:[id number] Other: # Voids 2 2 2 GENERAL DESCRIPTION: Middle-aged male lying in bed, no distress. No tachypnea or accessory muscle of respiration use. HEENT: Shows Pallor , no scleral icterus. Oral mucous membrane is dry. No pharyngeal erythema or thrush NECK: Trachea central, no thyromegaly. LUNGS: Unlabored breathing. Clear to auscultation anteriorly. No wheeze or crackle. HEART: S1, S2, regular rate and rhythm. No loud murmur ABDOMEN: Soft, mild epigastric tenderness , no guarding or rigidity, no organomegaly EXTREMITIES: No edema of feet. SKIN: No rash, no masses palpable. NEUROLOGICAL: The patient is awake, alert, oriented x3, mood and affect normal. Results CBC & Chem 7: 03/28/19 07:03 03/27/19 09:22 Labs: Abnormal Lab Results - Last 24 Hours (Table) 03/27/19 Range/Units 09:22 Sodium 133 L (137-145) mmol/L Potassium 3.2 L (3.5-5.1) mmol/L BUN 8 L (9-20) mg/dL Creatinine 0.44 L (0.66-1.25) mg/dL Calcium 8.0 L (8.4-10.2) mg/dL Microbiology - Last 24 Hours (Table) 03/24/19 10:50 Blood Culture - Preliminary Blood No Growth after 72 hours Assessment and Plan Assessment: 1-patient with leukocytosis in this patient has been admitted to the hospital with recurrent cholecystitis gall Stone associated pancreatitis in this patient who is status post ERCP and laparoscopic cholecystectomy, persistent leukocytosis could be related to his underlying pancreatitis , underlying worsening infection less likely as the patient seemed to show some improvement i n his abdominal pain and no high-grade fever has been reported and no evidence of infection at any other part of the body currently Plan: 1-discontinue the Zosyn 2-we'll obtain blood cultures 2 3-at the meropenem 1 g every 8 hours 4-if white count is to be elevated may benefit from a CT of abdominal pelvis for follow-up on pancreatitis we will follow on clinical condition and culture to further adjust medication if needed Thank you for this consultation will follow this patient along with you
[2019-03-28] MEDS ORDERED: Potassium Replacement Protocol 1 EACH MISC MISCELLANE PRN (08:26)
[2019-03-28] MEDS: oxyCODONE-APAP 5-325MG 1 EACH TAB PO PRN ×2 (08:29→20:11)
[2019-03-28] MEDS: ADDERALL 20 MG PO SCH ×3 (08:29→16:17)
[2019-03-28] MEDS: HYDROmorphone PCA 10 MG/50 ML BAG IV PRN ×2 (09:10→16:57)
[2019-03-28] MEDS: POTASSIUM CHLORIDE ER 20 MEQ TAB.ER PO SCH ×2 (09:11→10:53)
[2019-03-28] MEDS: MEROPENEM 1 GM in SODIUM CHLORIDE 0.9% 100 ML IVPB SCH ×3 (09:11→23:43)
[2019-03-28] MEDS ORDERED: POTASSIUM CHLORIDE ER 20 MEQ TAB.ER PO STA (10:12)
[2019-03-28] MEDS: 0.9% NACL WITH KCL 40 MEQ/L 1,000 ML IV SCH (10:55)
--- NOTE | 2019-03-28 12:16 | P.PN ---
Subjective Progress Note Date: 03/28/19 CHIEF COMPLAINT: Acute hydrops cholecystitis HISTORY OF PRESENT ILLNESS: The patient is a 38-year-old female postop day 6 status post cholecystectomy for acute cholecystitis. He had severe pancreatitis following ERCP. Clinically he is doing much better with adjustment of pain medication that now includes Toradol and IV tylenol. He is on liquid diet. ROS: No reports of nausea and vomiting. No productive sputum. Had low grade temperature PHYSICAL EXAM: VITAL SIGNS: Reviewed CONSTITUTIONAL: Well developed and in no acute distress. EYES: Conjuctivae without sclera icterus. Extraocular movements grossly intact. HEAD, EARS, NOSE, THROAT: Moist buccal mucosa. Head is atraumatic, normocepha lic. Hears conversational speech. No nasal drainage. NECK: Supple. No thyroidomegaly. RESPIRATORY: Non-labored respirations and equal bilateral excursions. CARDIOVASCULAR: Palpable 2+ radial pulses. Tachycardic ABDOMEN: Incisions clean dry and intact. Soft. Dressing left upper quadrant intact. Tender along the epigastrium. MUSCULOSKELETAL: No gross deformity of the lower extremities noted. No clubbing. No cyanosis. SKIN: Good skin turgor. Well perfused. NEUROLOGIC: Cranial nerves I through XII grossly intact. No focal or lateralizing signs. PSYCH: Appropriate affect. Alert and oriented to person, place and time. CLINCAL LABS: WBC is still elevated. Lipase is normal. Potassium is low. ASSESSMENT: 1. Acute moderate to severe pancreatitis post ERCP 2. Acute cholecystitis PLAN: 1. Will correct potassium. 2. Anticipated disposition within 48 hours pending improvement of blood pressure and tolerating diet. 3. Infectious disease consultation appreciated for persistent leukocytosis. 4. Clinical features consistent with SIRS Objective - Vital Signs Vital signs: Vital Signs Temp 99 F 03/28/19 07:00 Pulse 104 H 03/28/19 07:00 Resp 16 03/28/19 07:00 BP 160/89 03/28/19 07:00 Pulse Ox 95 03/28/19 11:54 Intake & Output 03/27/19 03/28/19 03/28/19 18:59 06:59 18:59 Intake Total 1150 Balance 1150 Intake: Intake, IV Titration 1150 Amount Piperacillin-Tazobactam 3 100 .375 gm In Sodium Chloride 0.9% 100 ml @ 25 mls/hr IVPB Q8H [facility] Rx#: [id number] Sodium Chloride 0.9% 1, 1050 000 ml @ 150 mls/hr IV . Q6H40M [facility] Rx#:[id number] Other: Voiding Method Toilet # Voids 2 2 # Bowel Movements 1 - Labs CBC & Chem 7: 03/29/19 10:03 03/29/19 10:03 Labs: Abnormal Lab Results - Last 24 Hours (Table) 03/28/19 03/28/19 03/28/19 Range/Units 07:03 07:03 09:27 WBC 14.3 H (3.8-10.6) k/uL RBC 3.68 L (4.30-5.90) m/uL Hgb 10.4 L (13.0-17.5) gm/dL Hct 31.6 L (39.0-53.0) % Sodium 135 L (137-145) mmol/L Potassium 3.0 L (3.5-5.1) mmol/L Chloride 95 L (98-107) mmol/L Creatinine 0.51 L (0.66-1.25) mg/dL Calcium 8.2 L (8.4-10.2) mg/dL ALT 82 H (21-72) U/L C-Reactive Protein 407.9 H (<10.0) mg/L Total Protein 5.8 L (6.3-8.2) g/dL Albumin 3.1 L (3.5-5.0) g/dL Microbiology - Last 24 Hours (Table) 03/24/19 10:50 Blood Culture - Preliminary Blood No Growth after 72 hours Assessment and Plan (1) Choledocholithiasis with acute cholecystitis Status: Acute Code(s): K80.42 - CALCULUS OF BILE DUCT W ACUTE CHOLECYSTITIS W/O OBSTRUCTION SNOMED Code(s): 78809620 (2) Choledocholithiasis with acute cholecystitis with obstruction Status: Acute Code(s): K80.43 - CALCULUS OF BILE DUCT W ACUTE CHOLECYSTITIS WITH OBSTRUCTION SNOMED Code(s): 03594796 (3) ADHD (attention deficit hyperactivity disorder) Status: Acute Code(s): F90.9 - ATTENTION-DEFICIT HYPERACTIVITY DISORDER, UNSPECIFIED TYPE SNOMED Code(s): 147742104 (4) Systemic inflammatory response syndrome (SIRS) Status: Acute Code(s): R65.10 - SIRS OF NON-INFECTIOUS ORIGIN W/O ACUTE ORGAN DYSFUNCTION SNOMED Code(s): 622116072
[2019-03-28] MEDS: LABETALOL 100 MG TAB PO SCH ×2 (16:13→20:12)
[2019-03-28] MEDS ORDERED: KETOROLAC 30 MG/ML 1 ML VIAL IM SCH (18:00)
[2019-03-28] MEDS: KETOROLAC 30 MG/ML 1 ML VIAL IVP SCH ×2 (18:30→23:43)
--- NOTE | 2019-03-29 00:53 | P.PN ---
Subjective Progress Note Date: 03/27/19 Principal diagnosis: Acute pancreatitis Patient is a 38-year-old male with a known history of gallstones for the past 20 years since a 18 and GERD came to ER with complaints of abdominal pain mainly right upper quadrant. Patient has been having intermittent abdominal pain. Blanca nguyen says that occasionally pain was associated with eating and subsides by itself. On the day of admission, 03/20/2019 patient has been having worsening pain for several hours which made him come to ER. Denied any fever or chills. Patient does have nausea and vomiting. no abdominal pain. ultrasound of the liver showed multiple gallstones. Patient was found to have elevated liver enzymes and bilirubin level II.3. Patient was seen by gastroenterology and had ERCP done with cholangiogram, sphincterotomy and balloon sweep of the CBD. Following the ERCP patient developed epigastric pain radiating to the back with elevated lipase level, pancreatitis. Patient was taken to or for cholecystectomy yesterday. Currently patient is status post cholecystectomy. Patient is still complaining of abdominal pain mainly epigastric region. Blood pressure is uncontrolled despite pain medications. Medicine service was consulted. Operative Findings, cholecystectomy: 1. Severe adhesive disease of the entire gallbladder to greater omentum from chronic cholecystitis 2. Acute cholecystitis identified. 3. Dome down technique performed for safe removal of gallbladder including firefly technology ERCP Impression: 1. ERCP with cholangiogram, sphincterotomy and balloon sweep of the CBD. 2. Normal CBD with no filling defect noted. 03/24/2019 Patient says that his abdominal pain is better today. Still requiring IV Dilaudid. Lipase level is trending down. General surgery is on board. Denied any fever or chills. No chest pain or shortness of breath. 03/25/2019 Patient says that his abdominal pain is much worse and last night and this morning. Patient has been afebrile. Lipase level improved 299 today. Bilirubin level and evidence of improving. CT of the abdominal was ordered to rule out any necrotizing pancreatitis. patient is being continued on Dilaudid IV every 3 hourly when necessary for pain. No chest pain or shortness of breath. Able to ambulate in the room. 03/26/2019 Patient's abdominal pain is better controlled with Dilaudid WHEEL ADJUSTER pump. Otherwise CT abdomen showed improving inflammation. Currently nothing by mouth. Potassium 3.2 today which is being replaced. Patient is tachycardic otherwise. Lung sounds clear. No cough is from production. No chest pain or shortness breath. Patient is able to ambulating in the room. Still having significant pain. 03/27/2019 Patient's abdominal pain is better. Otherwise still having leukocytosis around 14. ID was consulted. Patient is being continued on IV hydration and pain management with Dilaudid WHEEL ADJUSTER pump. General surgery is following. Patient was started on clear liquids otherwise. No fever no chills. Current medications reviewed. Objective - Vital Signs Vital signs: Vital Signs Temp 98.7 F 03/27/19 20:00 Pulse 93 03/27/19 20:00 Resp 18 03/27/19 20:00 BP 175/98 03/27/19 20:00 Pulse Ox 97 03/27/19 20:00 Intake & Output 03/27/19 03/27/19 03/28/19 06:59 18:59 06:59 Intake Total 1150 Balance 1150 Intake: Intake, IV Titration 1150 Amount Piperacillin-Tazobactam 3 100 .375 gm In Sodium Chloride 0.9% 100 ml @ 25 mls/hr IVPB Q8H [facility] Rx#: [id number] Sodium Chloride 0.9% 1, 1050 000 ml @ 150 mls/hr IV . Q6H40M [facility] Rx#:[id number] Other: # Voids 2 2 2 - Exam PHYSICAL EXAMINATION: Patient is lying in the bed comfortably, no acute distress, awake alert and oriented.. HEENT: Normocephalic. Neck is supple. Pupils reactive. Nostrils clear. Oral cavity is moist. Ears reveal no drainage. Neck reveals no JVD, carotid bruits, or thyromegaly. CHEST EXAMINATION: Trachea is central. Symmetrical expansion. Lung niño clear to auscultation and percussion. CARDIAC: Normal S1, S2 with no gallops. No murmurs ABDOMEN: Soft. mild Tenderness of the epigastric region. Surgical site intact. Bowel sounds normal. No organomegaly. No abdominal bruits. Extremities: reveal no edema. No clubbing or cyanosis Neurologically awake, alert, oriented x3 with well-coordinated movements. No focal deficits noted Skin: No rash or skin lesions. Psychiatric: Coperative. Nonsuicidal Musculoskeletal: No joint swelling or deformity. Normal range of motion. - Labs CBC & Chem 7: 03/28/19 07:03 03/28/19 07:03 Labs: Abnormal Lab Results - Last 24 Hours (Table) 03/27/19 Range/Units 09:22 Sodium 133 L (137-145) mmol/L Potassium 3.2 L (3.5-5.1) mmol/L BUN 8 L (9-20) mg/dL Creatinine 0.44 L (0.66-1.25) mg/dL Calcium 8.0 L (8.4-10.2) mg/dL Microbiology - Last 24 Hours (Table) 03/24/19 10:50 Blood Culture - Preliminary Blood No Growth after 72 hours Assessment and Plan Assessment: Elevated blood pressure likely due to pain and IV fluids. No history of hypertension. Choledocholithiasis with acute cholecystitis. Status post cholecystectomy. Elevated liver enzymes Cholelithiasis. Status post ERCP sphincterotomy Acute pancreatitis with elevated lipase level. lipase level is trending down. Cholelithiasis with chronic cholecystitis. GERD DVT prophylaxis Patient will be continued on IV hydration and pain management with Dilaudid. Continued on antibiotics in the form of Zosyn. WHEEL ADJUSTER pump for pain management. Patient will be placed on Catapres patch 0.1-0.2 mg since the patient is not rhona erating oral diet at this time. Continue to follow closely and adjust medications as needed.. Further recommendations based on the clinical course. Time with Patient: Greater than 30
--- NOTE | 2019-03-29 00:57 | P.PN ---
Subjective Progress Note Date: 03/28/19 Principal diagnosis: Acute pancreatitis Patient is a 38-year-old male with a known history of gallstones for the past 20 years since a 18 and GERD came to ER with complaints of abdominal pain mainly right upper quadrant. Patient has been having intermittent abdominal pain. Blanca nguyen says that occasionally pain was associated with eating and subsides by itself. On the day of admission, 03/20/2019 patient has been having worsening pain for several hours which made him come to ER. Denied any fever or chills. Patient does have nausea and vomiting. no abdominal pain. ultrasound of the liver showed multiple gallstones. Patient was found to have elevated liver enzymes and bilirubin level II.3. Patient was seen by gastroenterology and had ERCP done with cholangiogram, sphincterotomy and balloon sweep of the CBD. Following the ERCP patient developed epigastric pain radiating to the back with elevated lipase level, pancreatitis. Patient was taken to or for cholecystectomy yesterday. Currently patient is status post cholecystectomy. Patient is still complaining of abdominal pain mainly epigastric region. Blood pressure is uncontrolled despite pain medications. Medicine service was consulted. Operative Findings, cholecystectomy: 1. Severe adhesive disease of the entire gallbladder to greater omentum from chronic cholecystitis 2. Acute cholecystitis identified. 3. Dome down technique performed for safe removal of gallbladder including firefly technology ERCP Impression: 1. ERCP with cholangiogram, sphincterotomy and balloon sweep of the CBD. 2. Normal CBD with no filling defect noted. 03/24/2019 Patient says that his abdominal pain is better today. Still requiring IV Dilaudid. Lipase level is trending down. General surgery is on board. Denied any fever or chills. No chest pain or shortness of breath. 03/25/2019 Patient says that his abdominal pain is much worse and last night and this morning. Patient has been afebrile. Lipase level improved 299 today. Bilirubin level and evidence of improving. CT of the abdominal was ordered to rule out any necrotizing pancreatitis. patient is being continued on Dilaudid IV every 3 hourly when necessary for pain. No chest pain or shortness of breath. Able to ambulate in the room. 03/26/2019 Patient's abdominal pain is better controlled with Dilaudid [employer] pump. Otherwise CT abdomen showed improving inflammation. Currently nothing by mouth. Potassium 3.2 today which is being replaced. Patient is tachycardic otherwise. Lung sounds clear. No cough is from production. No chest pain or shortness breath. Patient is able to ambulating in the room. Still having significant pain. 03/27/2019 Patient's abdominal pain is better. Otherwise still having leukocytosis around 14. ID was consulted. Patient is being continued on IV hydration and pain management with Dilaudid [employer] pump. General surgery is following. Patient was started on clear liquids otherwise. No fever no chills. 03/28/2019 Patient says that his abdominal pain is better. WBC 14.3. Antibiotics were changed to meropenem as per ID recommendations. Blood pressure is elevated this morning and was started on labetalol 100 mg twice a day with holding parameters. Continue with Catapres patch. Pro-calcitonin 0.39 and elevated CRP as well General surgery and ID is on board. No fever no chills. No nausea vomiting or diarrhea. No cough or sputum production. Current medications reviewed. Objective - Vital Signs Vital signs: Vital Signs Temp 98.1 F 03/28/19 19:06 Pulse 117 H 03/28/19 19:06 Resp 18 03/28/19 19:06 BP 126/72 03/28/19 19:06 Pulse Ox 96 03/28/19 19:06 Intake & Output 03/28/19 03/28/19 03/29/19 06:59 18:59 06:59 Weight 99.79 kg Other: Voiding Method Toilet # Voids 2 2 # Bowel Movements 1 - Exam PHYSICAL EXAMINATION: Patient is lying in the bed comfortably, no acute distress, awake alert and oriented.. HEENT: Normocephalic. Neck is supple. Pupils reactive. Nostrils clear. Oral cavity is moist. Ears reveal no drainage. Neck reveals no JVD, carotid bruits, or thyromegaly. CHEST EXAMINATION: Trachea is central. Symmetrical expansion. Lung niño clear to auscultation and percussion. CARDIAC: Normal S1, S2 with no gallops. No murmurs ABDOMEN: Soft. mild Tenderness of the epigastric region. Surgical site intact. Bowel sounds normal. No organomegaly. No abdominal bruits. Extremities: reveal no edema. No clubbing or cyanosis Neurologically awake, alert, oriented x3 with well-coordinated movements. No focal deficits noted Skin: No rash or skin lesions. Psychiatric: Coperative. Nonsuicidal Musculoskeletal: No joint swelling or deformity. Normal range of motion. - Labs CBC & Chem 7: 03/28/19 07:03 03/28/19 07:03 Labs: Abnormal Lab Results - Last 24 Hours (Table) 03/28/19 03/28/19 03/28/19 Range/Units 07:03 07:03 09:27 WBC 14.3 H (3.8-10.6) k/uL RBC 3.68 L (4.30-5.90) m/uL Hgb 10.4 L (13.0-17.5) gm/dL Hct 31.6 L (39.0-53.0) % Sodium 135 L (137-145) mmol/L Potassium 3.0 L (3.5-5.1) mmol/L Chloride 95 L (98-107) mmol/L Creatinine 0.51 L (0.66-1.25) mg/dL Calcium 8.2 L (8.4-10.2) mg/dL ALT 82 H (21-72) U/L C-Reactive Protein 407.9 H (<10.0) mg/L Total Protein 5.8 L (6.3-8.2) g/dL Albumin 3.1 L (3.5-5.0) g/dL Procalcitonin (0.02-0.09) ng/mL 03/28/19 Range/Units 09:27 WBC (3.8-10.6) k/uL RBC (4.30-5.90) m/uL Hgb (13.0-17.5) gm/dL Hct (39.0-53.0) % Sodium (137-145) mmol/L Potassium (3.5-5.1) mmol/L Chloride (98-107) mmol/L Creatinine (0.66-1.25) mg/dL Calcium (8.4-10.2) mg/dL ALT (21-72) U/L C-Reactive Protein (<10.0) mg/L Total Protein (6.3-8.2) g/dL Albumin (3.5-5.0) g/dL Procalcitonin 0.39 H (0.02-0.09) ng/mL Microbiology - Last 24 Hours (Table) 03/24/19 10:50 Blood Culture - Preliminary Blood No Growth after 96 hours Assessment and Plan Assessment: Elevated blood pressure likely due to pain and IV fluids. No history of hypertension. Choledocholithiasis with acute cholecystitis. Status post cholecystectomy. Elevated liver enzymes Cholelithiasis. Status post ERCP sphincterotomy Acute pancreatitis with elevated lipase level. lipase level is trending down. Cholelithiasis with chronic cholecystitis. GERD DVT prophylaxis Patient will be continued on IV hydration and pain management with Dilaudid. Continued on antibiotics in the form of Zosyn- aged to meropenem. [employer] pump for pain management. Patient will be placed on Catapres patch 0.1-0.2 mg since the patient is not tolerating oral diet at this time. Continue to follow closely and adjust medications as needed.. Further recommendations based on the clinical course. Time with Patient: Greater than 30
[2019-03-29] MEDS: KETOROLAC 30 MG/ML 1 ML VIAL IVP SCH ×3 (05:06→18:15)
[2019-03-29] MEDS: HEPARIN SODIUM,PORCINE 5,000 UNIT/ML 1 ML VIAL SQ SCH ×2 (05:06→18:16)
[2019-03-29] MEDS: 0.9% NACL WITH KCL 40 MEQ/L 1,000 ML IV SCH (05:07)
[2019-03-29] MEDS: oxyCODONE-APAP 5-325MG 1 EACH TAB PO PRN ×3 (05:10→23:09)
--- NOTE | 2019-03-29 06:24 | PN ---
PROGRESS NOTE DATE OF SERVICE: 03/28/2019 REASON FOR FOLLOWUP: Leukocytosis and acute pancreatitis. INTERVAL HISTORY: The patient is currently afebrile. Patient has been breathing comfortably. The patient's epigastric pain has decreased intensity to about 5 out of 10 compared to yesterday. Denies having any chest pain or shortness of breath or cough. No nausea, no vomiting. Has been tolerating a clear liquid diet. No diarrhea. PHYSICAL EXAMINATION: On examination, blood pressure 126/72 with a pulse of 117, temperature of 98. He is 96% on room air. General description is a middle-aged male lying in bed in no distress. RESPIRATORY SYSTEM: Unlabored breathing, clear to auscultation anteriorly. HEART: S1, S2. Regular rate and rhythm. ABDOMEN: Soft, mildly tender. No guarding or rigidity. EXTREMITIES: No edema of the feet. LABS: Hemoglobin is 10.4, white count 14.3 with a BUN of 9 creatinine 0.51. DIAGNOSTIC IMPRESSION AND PLAN: Patient with leukocytosis, multifactorial in this patient did have a gallstone pancreatitis, status post cholecystectomy. Patient is currently covered with meropenem started yesterday. Will repeat CBC tomorrow. If any further worsening white count may benefit from a CT. Continue with supportive care. MMODL / IJN: [id number] /
[2019-03-29] MEDS: LABETALOL 100 MG TAB PO SCH ×2 (08:54→21:57)
[2019-03-29] MEDS: PANTOPRAZOLE 40 MG/10 ML VIAL IV SCH (08:55)
[2019-03-29] MEDS: HYDROmorphone PCA 10 MG/50 ML BAG IV PRN ×2 (09:21→09:45)
[2019-03-29] MEDS: ADDERALL 20 MG PO SCH ×3 (09:22→17:04)
[2019-03-29] MEDS: MEROPENEM 1 GM in SODIUM CHLORIDE 0.9% 100 ML IVPB SCH ×3 (09:44→23:11)
[2019-03-29 10:41] LABS: ALT 65 U/L (21-72); AST 33 U/L (17-59); African American GFR (CKD) >90 (>60 ml/min/1.73 sqM); Albumin 2.7 g/dL (3.5-5.0); Alkaline Phosphatase 67 U/L (38-126); Anion Gap 6 mmol/L; Blood Urea Nitrogen 16 mg/dL (9-20); Calcium 8.2 mg/dL (8.4-10.2); Carbon Dioxide 32 mmol/L (22-30); Chloride 99 mmol/L (98-107); Glucose 98 mg/dL (74-99); Potassium 3.5 mmol/L (3.5-5.1); Sodium 137 mmol/L (137-145); Total Bilirubin 0.8 mg/dL (0.2-1.3); Total Protein 5.3 g/dL (6.3-8.2)
--- NOTE | 2019-03-29 11:28 | P.PN ---
Subjective Progress Note Date: 03/29/19 CHIEF COMPLAINT: Acute hydrops cholecystitis HISTORY OF PRESENT ILLNESS: The patient is a 38-year-old female postop day 7 status post cholecystectomy for acute cholecystitis and has had pancreatitis following ERCP. Family is at bedside. He is clinically doing well. He reports his pain is the best control in the last several days with addition of Toradol including [place]. He is tolerating a soft diet. Infectious disease team has changed antibiotic to meropenem. No reports of fevers or chills. ROS: No reports of nausea and vomiting. No productive sputum. PHYSICAL EXAM: VITAL SIGNS: Reviewed CONSTITUTIONAL: Well developed and in no acute distress. EYES: Conjuctivae without sclera icterus. Extraocular movements grossly intact. HEAD, EARS, NOSE, THROAT: Moist buccal mucosa. Head is atraumatic, normocephalic. Hears conversational speech. No nasal drainage. NECK: Supple. No thyroidomegaly. RESPIRATORY: Non-labored respirations and equal bilateral excursions. CARDIOVASCULAR: Palpable 2+ radial pulses. Tachycardic ABDOMEN:Soft. No peritonitis. Incisions clean dry and intact. No infection. Decreased epigastric tenderness. MUSCULOSKELETAL: No gross deformity of the lower extremities noted. No clubbing. No cyanosis. SKIN: Good skin turgor. Well perfused. NEUROLOGIC: Cranial nerves I through XII grossly intact. No focal or lateralizing signs. PSYCH: Appropriate affect. Alert and oriented to person, place and time. CLINCAL LABS: WBC is improved. Lipase is normal. Potassium is normal. LFTs improved. ASSESSMENT: 1. Acute moderate to severe pancreatitis post ERCP 2. Acute cholecystitis 3. SIRS from pancreatitis PLAN: 1. His pain is not completely resolved as he still uses TECHNICAL PUBLICATIONS WRITER. Continue hospitalization. 2. Diet as tolerated. 3. Overall, liver enzymes are now normal. 4. Likely disposition in 3 days pending complete resolution of abdominal pain without TECHNICAL PUBLICATIONS WRITER Objective - Vital Signs Vital signs: Vital Signs Temp 98.2 F 03/29/19 07:00 Pulse 88 03/29/19 07:00 Resp 16 03/29/19 07:00 BP 123/71 03/29/19 07:00 Pulse Ox 100 03/29/19 07:00 Intake & Output 03/28/19 03/29/19 03/29/19 18:59 06:59 18:59 Intake Total 120 Balance 120 Weight 99.79 kg Intake: Oral 120 Other: Voiding Method Toilet # Voids 2 1 - Labs CBC & Chem 7: 03/29/19 10:03 03/29/19 10:03 Labs: Abnormal Lab Results - Last 24 Hours (Table) 03/28/19 03/29/19 Range/Units 09:27 10:03 Carbon Dioxide 32 H (22-30) mmol/L Creatinine 0.61 L (0.66-1.25) mg/dL Calcium 8.2 L (8.4-10.2) mg/dL Total Protein 5.3 L (6.3-8.2) g/dL Albumin 2.7 L (3.5-5.0) g/dL Procalcitonin 0.39 H (0.02-0.09) ng/mL Microbiology - Last 24 Hours (Table) 03/24/19 10:50 Blood Culture - Preliminary Blood No Growth after 96 hours Assessment and Plan (1) Choledocholithiasis with acute cholecystitis Status: Acute Code(s): K80.42 - CALCULUS OF BILE DUCT W ACUTE CHOLECYSTITIS W/O OBSTRUCTION SNOMED Code(s): 63128652 (2) Choledocholithiasis with acute cholecystitis with obstruction Status: Acute Code(s): K80.43 - CALCULUS OF BILE DUCT W ACUTE CHOLECYSTITIS WITH OBSTRUCTION SNOMED Code(s): 01268777 (3) ADHD (attention deficit hyperactivity disorder) Status: Acute Code(s): F90.9 - ATTENTION-DEFICIT HYPERACTIVITY DISORDER, UNSPECIFIED TYPE SNOMED Code(s): 405665193 (4) Cholelithiasis Status: Acute Code(s): K80.20 - CALCULUS OF GALLBLADDER W/O CHOLECYSTITIS W/O OBSTRUCTION SNOMED Code(s): 931261752 (5) Elevated LFTs Status: Acute Code(s): R94.5 - ABNORMAL RESULTS OF LIVER FUNCTION STUDIES SNOMED Code(s): 944847428 (6) Post-ERCP acute pancreatitis Status: Acute Code(s): K91.89 - OTH POSTPROCEDURAL COMPLICATIONS AND DISORDERS OF DGSTV SYS; K85.90 - ACUTE PANCREATITIS WITHOUT NECROSIS OR INFECTION, UNSP SNOMED Code(s): 992878754 (7) Systemic inflammatory response syndrome (SIRS) Status: Acute Code(s): R65.10 - SIRS OF NON-INFECTIOUS ORIGIN W/O ACUTE ORGAN DYSFUNCTION SNOMED Code(s): 657623625
[2019-03-29 11:46] LABS: Basophils % (A) 0 %; Eosinophils # (A) 0.2 k/uL (0-0.7); Eosinophils % (A) 2 %; HCT 27.3 % (39.0-53.0); Lymphocytes # (A) 1.3 k/uL (1.0-4.8); Lymphocytes % (A) 12 %; MCH 28.4 pg (25.0-35.0); MCHC 33.1 g/dL (31.0-37.0); MCV 85.7 fL (80.0-100.0); Mean Platelet Volume 7.2; Monocytes # (A) 0.5 k/uL (0-1.0); Monocytes % (A) 5 %; Neutrophils # (A) 8.8 k/uL (1.3-7.7); Neutrophils % (A) 80 %; Platelet Count 269 k/uL (150-450); Poikilocytosis Slight; RBC 3.18 m/uL (4.30-5.90); RDW 13.3 % (11.5-15.5); WBC 11.1 k/uL (3.8-10.6)
[2019-03-29] MEDS ORDERED: POTASSIUM CHLORIDE ER 20 MEQ TAB.ER PO STA (16:29)
--- NOTE | 2019-03-30 00:20 | P.PN ---
Subjective Progress Note Date: 03/29/19 Principal diagnosis: Acute pancreatitis Patient is a 38-year-old male with a known history of gallstones for the past 20 years since a 18 and GERD came to ER with complaints of abdominal pain mainly right upper quadrant. Patient has been having intermittent abdominal pain. Blanca nguyen says that occasionally pain was associated with eating and subsides by itself. On the day of admission, 03/20/2019 patient has been having worsening pain for several hours which made him come to ER. Denied any fever or chills. Patient does have nausea and vomiting. no abdominal pain. ultrasound of the liver showed multiple gallstones. Patient was found to have elevated liver enzymes and bilirubin level II.3. Patient was seen by gastroenterology and had ERCP done with cholangiogram, sphincterotomy and balloon sweep of the CBD. Following the ERCP patient developed epigastric pain radiating to the back with elevated lipase level, pancreatitis. Patient was taken to or for cholecystectomy yesterday. Currently patient is status post cholecystectomy. Patient is still complaining of abdominal pain mainly epigastric region. Blood pressure is uncontrolled despite pain medications. Medicine service was consulted. Operative Findings, cholecystectomy: 1. Severe adhesive disease of the entire gallbladder to greater omentum from chronic cholecystitis 2. Acute cholecystitis identified. 3. Dome down technique performed for safe removal of gallbladder including firefly technology ERCP Impression: 1. ERCP with cholangiogram, sphincterotomy and balloon sweep of the CBD. 2. Normal CBD with no filling defect noted. 03/24/2019 Patient says that his abdominal pain is better today. Still requiring IV Dilaudid. Lipase level is trending down. General surgery is on board. Denied any fever or chills. No chest pain or shortness of breath. 03/25/2019 Patient says that his abdominal pain is much worse and last night and this morning. Patient has been afebrile. Lipase level improved 299 today. Bilirubin level and evidence of improving. CT of the abdominal was ordered to rule out any necrotizing pancreatitis. patient is being continued on Dilaudid IV every 3 hourly when necessary for pain. No chest pain or shortness of breath. Able to ambulate in the room. 03/26/2019 Patient's abdominal pain is better controlled with Dilaudid CAMERA ENGINEER pump. Otherwise CT abdomen showed improving inflammation. Currently nothing by mouth. Potassium 3.2 today which is being replaced. Patient is tachycardic otherwise. Lung sounds clear. No cough is from production. No chest pain or shortness breath. Patient is able to ambulating in the room. Still having significant pain. 03/27/2019 Patient's abdominal pain is better. Otherwise still having leukocytosis around 14. ID was consulted. Patient is being continued on IV hydration and pain management with Dilaudid CAMERA ENGINEER pump. General surgery is following. Patient was started on clear liquids otherwise. No fever no chills. 03/28/2019 Patient says that his abdominal pain is better. WBC 14.3. Antibiotics were changed to meropenem as per ID recommendations. Blood pressure is elevated this morning and was started on labetalol 100 mg twice a day with holding parameters. Continue with Catapres patch. Pro-calcitonin 0.39 and elevated CRP as well General surgery and ID is on board. No fever no chills. No nausea vomiting or diarrhea. No cough or sputum production. 03/29/2019 Patient's abdominal pain is much improved now. Occasionally requiring Dilaudid CAMERA ENGINEER. Tolerating oral diet and is being advanced. Otherwise patient did have improvement in leukocytosis to 11. Currently on antibiotics in the form of dennis penem. General surgery and ID is on board. Anticipate transitioning to oral pain medications and possible discharge in next 24-48 hours. No fever no chills. No nausea vomiting or diarrhea. No chest pain or shortness of breath. Current medications reviewed. Objective - Vital Signs Vital signs: Vital Signs Temp 99.1 F 03/29/19 14:41 Pulse 91 03/29/19 16:14 Resp 16 03/29/19 14:41 BP 115/68 03/29/19 14:41 Pulse Ox 96 03/29/19 14:41 Intake & Output 03/29/19 03/29/19 03/30/19 06:59 18:59 06:59 Intake Total 120 Balance 120 Intake: Oral 120 Other: Voiding Method Toilet # Voids 1 2 - Exam PHYSICAL EXAMINATION: Patient is lying in the bed comfortably, no acute distress, awake alert and oriented.. HEENT: Normocephalic. Neck is supple. Pupils reactive. Nostrils clear. Oral cavity is moist. Ears reveal no drainage. Neck reveals no JVD, carotid bruits, or thyromegaly. CHEST EXAMINATION: Trachea is central. Symmetrical expansion. Lung niño clear to auscultation and percussion. CARDIAC: Normal S1, S2 with no gallops. No murmurs ABDOMEN: Soft. mild Tenderness of the epigastric region. Surgical site intact. Bowel sounds normal. No organomegaly. No abdominal bruits. Extremities: reveal no edema. No clubbing or cyanosis Neurologically awake, alert, oriented x3 with well-coordinated movements. No focal deficits noted Skin: No rash or skin lesions. Psychiatric: Coperative. Nonsuicidal Musculoskeletal: No joint swelling or deformity. Normal range of motion. - Labs CBC & Chem 7: 03/29/19 10:03 03/29/19 10:03 Labs: Abnormal Lab Results - Last 24 Hours (Table) 03/29/19 03/29/19 Range/Units 10:03 10:03 WBC 11.1 H (3.8-10.6) k/uL RBC 3.18 L (4.30-5.90) m/uL Hgb 9.0 L (13.0-17.5) gm/dL Hct 27.3 L (39.0-53.0) % Neutrophils # 8.8 H (1.3-7.7) k/uL Carbon Dioxide 32 H (22-30) mmol/L Creatinine 0.61 L (0.66-1.25) mg/dL Calcium 8.2 L (8.4-10.2) mg/dL Total Protein 5.3 L (6.3-8.2) g/dL Albumin 2.7 L (3.5-5.0) g/dL Microbiology - Last 24 Hours (Table) 03/24/19 10:50 Blood Culture - Preliminary Blood No Growth after 120 hours 03/28/19 09:27 Blood Culture - Preliminary Blood No Growth after 24 hours Assessment and Plan Assessment: Elevated blood pressure likely due to pain and IV fluids. No history of hypertension. Choledocholithiasis with acute cholecystitis. Status post cholecystectomy. Elevated liver enzymes Cholelithiasis. Status post ERCP sphincterotomy Acute pancreatitis with elevated lipase level. lipase level is trending down. Cholelithiasis with chronic cholecystitis. GERD DVT prophylaxis Patient will be continued on IV hydration and pain management with Dilaudid. Continued on antibiotics in the form of Zosyn- aged to meropenem. CAMERA ENGINEER pump for pain management. Blood pressure is better controlled now. Has been discontinued. Patient was started on labetalol twice a day. Patient did not require blood pressure medications at home once pain is well controlled... Continue to follow closely and adjust medications as needed.. Further recommendations based on the clinical course. Time with Patient: Greater than 30
[2019-03-30] MEDS: KETOROLAC 30 MG/ML 1 ML VIAL IVP SCH ×3 (01:09→14:12)
[2019-03-30] MEDS: ALPRAZolam 0.5 MG TAB PO PRN (01:10)
[2019-03-30] MEDS: 0.9% NACL WITH KCL 40 MEQ/L 1,000 ML IV SCH (03:24)
[2019-03-30] MEDS: HEPARIN SODIUM,PORCINE 5,000 UNIT/ML 1 ML VIAL SQ SCH (06:00)
[2019-03-30] MEDS: MEROPENEM 1 GM in SODIUM CHLORIDE 0.9% 100 ML IVPB SCH (09:43)
[2019-03-30] MEDS: PANTOPRAZOLE 40 MG/10 ML VIAL IV SCH (09:43)
[2019-03-30] MEDS: LABETALOL 100 MG TAB PO SCH (09:43)
[2019-03-30] MEDS: oxyCODONE-APAP 5-325MG 1 EACH TAB PO PRN ×2 (09:45→15:40)
--- NOTE | 2019-03-30 09:54 | P.PN ---
Subjective Progress Note Date: 03/30/19 Principal diagnosis: Pancreatitis Patient doing well today. IV fell out during the middle of night. Pain however is controlled with oral meds. T-max 99.1. Tolerating diet. Objective - Vital Signs Vital signs: Vital Signs Temp 98.2 F 03/30/19 02:30 Pulse 89 03/30/19 02:30 Resp 16 03/30/19 03:57 BP 130/73 03/30/19 02:30 Pulse Ox 97 03/30/19 02:30 Intake & Output 03/29/19 03/30/19 03/30/19 18:59 06:59 18:59 Other: Voiding Method Toilet # Voids 2 2 - Exam Having: Soft, nondistended, mild epigastric tenderness - Labs CBC & Chem 7: 03/29/19 10:03 03/29/19 10:03 Labs: Abnormal Lab Results - Last 24 Hours (Table) 03/29/19 03/29/19 Range/Units 10:03 10:03 WBC 11.1 H (3.8-10.6) k/uL RBC 3.18 L (4.30-5.90) m/uL Hgb 9.0 L (13.0-17.5) gm/dL Hct 27.3 L (39.0-53.0) % Neutrophils # 8.8 H (1.3-7.7) k/uL Carbon Dioxide 32 H (22-30) mmol/L Creatinine 0.61 L (0.66-1.25) mg/dL Calcium 8.2 L (8.4-10.2) mg/dL Total Protein 5.3 L (6.3-8.2) g/dL Albumin 2.7 L (3.5-5.0) g/dL Microbiology - Last 24 Hours (Table) 03/24/19 10:50 Blood Culture - Preliminary Blood No Growth after 120 hours 03/28/19 09:27 Blood Culture - Preliminary Blood No Growth after 24 hours Assessment and Plan (1) Choledocholithiasis with acute cholecystitis Narrative/Plan: Keep IV out for now. Continue oral [place]. Discharge later today or tomorrow on oral pain medications if tolerating diet and pain controlled. Current Visit: Yes Status: Acute Code(s): K80.42 - CALCULUS OF BILE DUCT W ACUTE CHOLECYSTITIS W/O OBSTRUCTION SNOMED Code(s): 00358723
--- NOTE | 2019-03-30 10:42 | PN ---
PROGRESS NOTE DATE OF SERVICE: 03/29/2019 REASON FOR FOLLOWUP: Leukocytosis and acute pancreatitis. INTERVAL HISTORY: The patient is currently afebrile. The patient has been breathing comfortably. The patient's abdominal pain has improved. No nausea, no vomiting. Has been tolerating clear liquid diet. No chest pain, shortness of breath or cough. PHYSICAL EXAMINATION: Blood pressure 115/68 with a pulse of 91, temperature 99.1, he is 96% on room air. General description is a middle-aged male, lying in bed, in no distress. RESPIRATORY SYSTEM: Unlabored breathing, clear to auscultation anteriorly. HEART: S1, S2. Regular rate and rhythm. ABDOMEN: Soft, no tenderness. LABS: Hemoglobin is 9 with white count of 11.1. BUN of 16, creatinine 0.61. Blood culture has been negative. DIAGNOSTIC IMPRESSION AND PLAN: Patient with acute gallstone pancreatitis in this patient who is status post cholecystectomy and ERCP. The patient's white count has shown a downward trend, down to 11.1. We will keep the patient on meropenem and monitor clinical course closely. Continue supportive care. MMODL / IJN: [id number] /
[2019-03-30] MEDS: ADDERALL 20 MG PO SCH (12:13)
--- NOTE | 2019-03-30 15:06 | PN ---
PROGRESS NOTE DATE OF SERVICE: 03/30/2019 REASON FOR FOLLOWUP: Acute pancreatitis, gallstones. INTERVAL HISTORY: The patient is currently afebrile. Patient has been feeling better. Breathing comfortably. His abdominal pain has improved. He is tolerating a diet. No nausea, vomiting. No diarrhea. No chest pain, shortness of breath or cough. The patient had lost his IV yesterday and has not received antibiotics since last night. However, I was not notified of this finding. Per the RN, the patient is a hard stick and Surgical Service were okay with no IV. PHYSICAL EXAMINATION: Blood pressure 127/73 with a pulse of 93, temperature 98.2. He is 99% on room air. General description is a middle-aged male lying in bed in no distress. Respiratory system: Unlabored breathing, clear to auscultation anteriorly. Heart S1, S2. Regular rate and rhythm. Abdomen soft, no tenderness. LABS: No new labs been obtained today. Blood cultures have been negative. DIAGNOSTIC IMPRESSION AND PLAN: Patient with gallstone pancreatitis in this patient who is status post cholecystectomy, laparoscopic. The patient's white count did show response to meropenem. However, the patient has not received antibiotics since last night and I was not notified, currently with IV access. The patient wants to go home too. Will give him a short course of oral Cipro and Flagyl with instructions if any recurrence of abdominal pain or any fever to let us know right away. Otherwise, follow up in the office in 1 week. MMODL / IJN: [id number] /
[2019-03-30 15:33] VITALS: BP 141/89; PULSE 90; RESP 17; TEMP 98.4
--- NOTE | 2019-03-30 21:57 | PN ---
PROGRESS NOTE DATE OF SERVICE: 03/30/2019. HISTORY: This 38-year-old gentleman who was admitted with acute choledocholithiasis and cholecystitis, underwent cholecystectomy. The patient also had elevated blood pressure, treated with labetalol, but currently the blood pressure is maintained at this time. The patient apparently was monitoring blood pressure in the outpatient setting, ambulatory setting, with Dr. Her closely. No chest pain. No palpitations. No fever. PHYSICAL EXAM: Alert and oriented x3. Pulse 90, blood pressure 141/89, respirations 17, temperature 98.4, pulse ox 94% on room air. NECK: Normal. CARDIOVASCULAR: S1 and S2 muffled. LUNGS: Breath sounds diminished at the bases. Few scattered rhonchi. ABDOMEN: Soft nontender. LEGS: No edema. No swelling. 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 LAB STUDIES: WBC 11.1, hemoglobin 9, sodium 137, potassium 3.5. ASSESSMENT: 1. Acute cholecystitis and choledocholithiasis, status post cholecystectomy. 2. Elevated blood pressure fluctuating, improved at this time. 3. Status post ERCP and sphincterotomy. 4. History of pancreatitis. 5. Gastroesophageal reflux disease. 6. DVT prophylaxis. 7. Hyponatremia. 8. Hypokalemia improved. 9. Elevated CRP. 10.Increased WBC. 11.Anemia, normocytic, of undetermined etiology. RECOMMENDATIONS AND DISCUSSION: This 38-year-old gentleman who presented with multiple complex medical issues, at this time I recommend continue the current management as mentioned earlier. Blood pressure is normalized at this time. I recommend to the chart the blood pressure and keep a log at home and follow with Dr. Her. Otherwise, resume the home medications. The rest of the recommendations per Surgery. Further recommendations to follow. MMODL / IJN: [id number] /
--- NOTE | 2019-04-01 18:30 | P.DS ---
Providers Date of admission: 03/21/19 14:03 Expected date of discharge: 03/30/19 Attending physician: Jennifer Smith Consults: 03/23/19 15:16 Consult Physician Stat Consulting Provider: Idalia Uriarte Consult Reason/Comments: Medical Management Do you want consulting provider notified?: Yes 03/27/19 12:42 Consult Physician Routine Consulting Provider: Sedrick Lugo Consult Reason/Comments: Pancreatitis, antibiotic management Do you want consulting provider notified?: Yes Primary care physician: René Her - Discharge Diagnosis(es) (1) Choledocholithiasis with acute cholecystitis Status: Acute (2) Choledocholithiasis with acute cholecystitis with obstruction Status: Acute (3) ADHD (attention deficit hyperactivity disorder) Status: Acute (4) Cholelithiasis Status: Acute (5) Elevated LFTs Status: Acute (6) Post-ERCP acute pancreatitis Status: Acute (7) Systemic inflammatory response syndrome (SIRS) Status: Acute Hospital Course: POSTOPERATIVE DIAGNOSES: 1. Acute cholecystitis 2. Right upper quadrant abdominal pain 3. Symptomatic gallstones 4. ERCP induced pancreatitis 5. Epigastric abdominal pain 6. Attention deficit disorder/ADHD 7. Peritoneal adhesions from greater omentum to gallbladder 8. SIRS due to pancreatitis CHIEF COMPLAINT: Acute hydrops cholecystitis COURSE: The patient is a 38-year-old male admitted for gallstone induced pancreatitis. He had ERCP then developed pancreatitis following the procedure. He had cholecystectomy and done well from the procedure. He had severe pancreatitis with SIRS and uncontrolled pain. Infectious disease was consulted. Antibiotics and pain adjustment was performed. Prior to discharge, his pain was improved, he was afebrile and tolerating diet. Procedures: OPERATION: 1. Robotic-assisted da Jj Xi laparoscopic lysis of adhesions over 1 hr 2. Robotic-assisted da Jj Xi laparoscopic cholecystectomy, multiport with FIREFLY Patient Condition at Discharge: Stable Plan - Discharge Summary Discharge Rx Participant: Yes New Discharge Prescriptions: New Hydrocodone/Acetaminophen [Troy 5-325] 1 tab PO Q4HR PRN 3 Days #18 tab PRN Reason: Pain Ciprofloxacin HCl [Cipro] 500 mg PO Q12HR #20 tablet metroNIDAZOLE [Flagyl] 500 mg PO Q8HR #30 tab No Action Dextroamphetamine/Amphetamine [Adderall] 20 mg PO BID Discharge Medication List Dextroamphetamine/Amphetamine [Adderall] 20 mg PO BID 08/21/19 [History] Hydrocodone/Acetaminophen [Troy 5-325] 1 tab PO Q4HR PRN 3 Days #18 tab [Rx] Ciprofloxacin HCl [Cipro] 500 mg PO Q12HR #20 tablet 03/30/19 [Rx] metroNIDAZOLE [Flagyl] 500 mg PO Q8HR #30 tab 03/30/19 [Rx] Follow up Appointment(s)/Referral(s): Jennifer Smith MD [STAFF PHYSICIAN] - 04/09/19 (office closed at time of discharge please call to make appointment) René Her MD [Primary Care Provider] - 1-2 days (office closed at time of discharge please call to make appointment) Sedrick Lugo MD [STAFF PHYSICIAN] - 1 Week (office closed at time of discharge please call to make appoinment) Patient Instructions/Handouts: Pancreatitis (DC), Laparoscopic Cholecystectomy (DC) Activity/Diet/Wound Care/Special Instructions: No driving while taking [place] No lifting over 10 pounds You may shower. No soaking or tub baths Very light activity until you are reevaluated at your follow up appointment with your surgeon Discharge Disposition: HOME SELF-CARE
== END 2019-03-30 17:06 | disposition home or self-care (01) | DRG 417 ==
LOC: EC 16:39 → 4SSUR 19:56 → OBSVTOIN 03-21 14:03
PROVIDERS: ADMIT Surgery Plastic and Reconstructive Surgery; ATTEND Surgery Plastic and Reconstructive Surgery
PROC: 0F798ZZ Dilation of Common Bile Duct, Via Natural or Artificial Opening Endoscopic (ICD-10-PCS; 2019-03-21)
PROC: 0FT44ZZ Resection of Gallbladder, Percutaneous Endoscopic Approach (ICD-10-PCS; principal; 2019-03-22 07:30)
PROC: 0FN44ZZ Release Gallbladder, Percutaneous Endoscopic Approach (ICD-10-PCS; principal; 2019-03-22 07:30)
PROC: 8E0W4CZ Robotic Assisted Procedure of Trunk Region, Percutaneous Endoscopic Approach (ICD-10-PCS; principal; 2019-03-22 07:30)
DX: K80.63 Calculus of gallbladder and bile duct with acute cholecystitis with obstruction (principal); K85.10 Biliary acute pancreatitis without necrosis or infection; E87.1 Hypo-osmolality and hyponatremia; K66.0 Peritoneal adhesions (postprocedural) (postinfection); R03.0 Elevated blood-pressure reading, without diagnosis of hypertension; R79.89 Other specified abnormal findings of blood chemistry; K21.9 Gastro-esophageal reflux disease without esophagitis; F90.9 Attention-deficit hyperactivity disorder, unspecified type; D64.9 Anemia, unspecified; E87.6 Hypokalemia; K66.8 Other specified disorders of peritoneum; Y84.8 Other medical procedures as the cause of abnormal reaction of the patient, or of later complication, without mention of misadventure at the time of the procedure; Z79.899 Other long term (current) drug therapy
CPT/HCPCS: 36415; 43262; 64488; 74019; 74177; 74330; 76705; 80048; 80053; 80076; 81001; 82150; 83605; 83690; 83735; 84145; 85025; 85027; 86140; 87040; 88304; 94760; 94762; 96361; 96365; 96375; 99285